=== PATIENT | male | born 1960 | race Caucasian/White ===

== ENCOUNTER 2017-10-23 18:33 | Inpatient (IN) ==
[2017-10-23] MEDS ORDERED: Albuterol 2.5 MG/3 ML NEBULIZER IH PRN (22:09)
[2017-10-23] MEDS ORDERED: Naloxone 0.4 MG/ML INJ IVP PRN (22:09)
[2017-10-23] MEDS: 0.9 % Sodium Chloride 1,000 ML IVC SCH (22:56)
--- NOTE | 2017-10-23 23:11 | Internal Med History&Physical ---
Date of Encounter: 10/23/17 Time of Encounter: 21:45 Internal Medicine - H&P: HPI Chief complaint: cough; SOB; trasnfer from [facility] Admitted From: Hospital to Hospital Transfer Plans for Post Hospital Care: Home History of present illness: Mr. Gaitan is a 57 year old male who presents in transfer from [facility] ER for concerns of pneumonia, acute influenza, and sepsis. He presented there with cough, shortness breath, fevers, malaise, and weakness. Symptoms started roughly 3 days prior and progressively worsened. He therefore came to the ER at [place] where he was noted to be quite ill. He was hypotensive, short of breath, and coughing vigorously. He received IV fluid bolus per sepsis protocol and received antibiotics. Once stabilized hemodynamically, he was transferred here to [facility] for ongoing care. Unfortunately, blood cultures were not obtained even though they were ordered. At the present time, his blood pressure has stabilized to 90s - 100's systolic and his heart rate is the 90s. He still appears quite dehydrated. He states he feels better since he received IV fluid boluses. He complains of left -sided pleuritic chest pain with coughing and splinting. He denies any hemoptysis. He has some wheezing. He has had some nausea but no vomiting or diarrhea. I reviewed his labs at [place] and note that he has some hyponatremia and acute kidney injury. His baseline creatinine is normal around 1, but it is presently 1.67. He also has some mild transaminitis above and beyond his baseline. Past Med Surg Social Fam HX - Past Medical History Attestation: Yes The following information was validated with the patient. Source: patient, old records reviewed, obtained from family Medical history: asthma, COPD, glaucoma, hypertension, other (psoriatic arthritis) Psychiatric history: no psych history - Past Surgical History Surgical History: sinus surgery - Social History Smoking Status: Never smoker Smokeless Tobacco Status: No Alcohol use: none Drug use: none Current living situation: Home, With Family Activity Level: Independent ambulation Recent Out of Country Travel Within the Last 8 Weeks: No - Family History Mother Living Status: Hx Family Respiratory Disorders: No Father Hx Family Respiratory Disorders: No Internal Medicine - H&P: Meds Albuterol Sulfate 2.5 mg IH TID 02/16/15 [History] Albuterol Sulfate [Albuterol Inhaler] 2 puff IH Q4HR PRN 02/16/15 [History] Losartan Potassium [Cozaar] 50 mg PO DAILY 02/16/15 [History] Montelukast [Singulair] 10 mg PO DAILY 02/16/15 [History] Amitriptyline [Elavil] 10 mg PO HS 09/24/16 [History] Cyclobenzaprine [Flexeril] 10 mg PO TID 09/24/16 [History] Divalproex (24 HR) [Depakote ER (24 HR)] 1,000 mg PO HS 09/24/16 [History] Gabapentin [Neurontin] 600 mg PO TID 09/24/16 [History] Gluc/Mauricio-MSM#1/C/Ivan/Valeriy/Bor [Osteo Bi-Flex Caplet] 1 each PO BID 09/24/16 [ History] Meloxicam [Mobic] 15 mg PO DAILY 09/24/16 [History] Omeprazole [PriLOSEC] 40 mg PO BID 09/24/16 [History] Betamethasone Valerate 1 appl TP DAILY 10/23/17 [History] Clobetasol Propionate [Temovate] 1 appl TP BID PRN 10/23/17 [History] Furosemide [Lasix] 40 mg PO DAILY 10/23/17 [History] Loratadine [Claritin] 10 mg PO DAILY 10/23/17 [History] Mometasone/Formoterol [Dulera 100 Mcg/5 Mcg Inhaler] 2 puff IH BID 10/23/17 [ History] Sulfasalazine [Azulfidine] 1,000 mg PO BID 10/23/17 [History] 3 Allergy/AdvReac Type Severity Reaction Status Date / Time No Known Allergies Allergy Verified 09/24/16 13:41 - Constitutional Constitutional: chills, fatigue, fever(s), malaise, weakness, no night sweats - EENT Eyes: no blurry vision, no change in vision Ears: no ear pain, no tinnitus Nose, mouth and throat: nasal congestion, sore throat, no nasal discharge, no sinus pain, no sinus pressure - Cardiovascular Cardiovascular ROS IM: dyspnea, no chest pain, no lightheadedness, no palpitations, no paroxysmal nocturnal dyspnea, no syncope - Respiratory Respiratory: cough, dyspnea, chest congestion, excessive phlegm production, change in phlegm color, pain with cough, no hemoptysis - Gastrointestinal Gastrointestinal: nausea, no abdominal pain, no diarrhea, no hematemesis, no hematochezia, no melena, no vomiting - Genitourinary Genitourinary ROS male: no dysuria, no flank pain, no nocturia - Musculoskeletal Musculoskeletal ROS IM: arthralgias, muscle cramps, myalgias, no back pain, no joint swelling - Integumentary Integumentary IM: no rash, no jaundice - Neurological Neurological ROS: no dizziness, no focal weakness, no frequent falls, no headache(s) - Psychiatric Psychiatric: no anxiety, no depression - Endocrine Endocrine IM: no polydipsia, no polyuria - Hematologic/Lymphatic Hematologic/Lymphatic: no easy bruising, no lymphadenopathy - Allergic/Immunologic Allergic/Immunologic: wheezing, no GI upset with certain foods - Constitutional Vitals: Temp Pulse Resp BP Pulse Ox 98.4 F 96 18 92/58 93 10/23/17 20:40 10/23/17 20:40 10/23/17 20:40 10/23/17 20:40 10/23/17 20:40 General appearance: Present: cooperative, mild distress, A&O X 3, pleasant, answers questions appropriately Exam: looks dehydrated and acutely ill but non-toxic - Head Head exam: Present: atraumatic, normal inspection - Eye Eye exam: Present: EOMI, normal appearance, PERRL. Absent: scleral icterus Pupils: Present: normal accommodation - ENT ENT exam: Present: mucous membranes dry, normal exam, normal oropharynx - Neck Neck exam general surgery: Present: full ROM, supple. Absent: lymphadenopathy, tenderness, nuchal rigidity, thyromegaly - Respiratory Respiratory exam: Present: prolonged expiratory phase, rales (left base), respiratory distress (mild ot moderate), rhonchi, tachypnea. Absent: chest wall tenderness, wheezes Additional comments: + splinting with deep inspiration and coughing - Cardiovascular Cardiovascular exam: Present: RRR, +S1, +S2, tachycardia (borderline -- 90-100's ). Absent: diastolic murmur, systolic murmur - GI/Abdominal GI/Abdominal exam: Present: normal bowel sounds, soft, no peritoneal signs. Absent: guarding, hepatomegaly, mass, rebound, tenderness - Extremities Exam Extremities exam: Present: full ROM, warm, radial pulses palpable and symmetrical. Absent: calf tenderness, joint swelling, normal capillary refill ( slightly delayed at 2-3 seconds), mottling, pedal edema, tenderness - Back Exam Back exam: Present: normal inspection. Absent: CVA tenderness (L), CVA tenderness (R) - Neurological Exam Neurological exam: Present: alert, CN II-XII intact, oriented X3, no focal deficits - Psychiatric Psychiatric exam: Present: normal affect, normal mood - Skin Skin exam: Present: dry, warm. Absent: rash Internal Med - H&P Results - Labs Labs: I reviewed labs from [place] and include the following: WBC 3.0 Hemoglobin 13.9 Hematocrit 40.6 Platelet count 134 Sodium 129 Potassium 4.6 Chloride 93 Carbon dioxide 28 BUN 34 Creatinine 1.67 Initial lactate 1.4 - Diagnostic Studies Chest x-ray Status: image reviewed by me (suspect RML and LLL infiltrates) - Assessment and plan (1) Sepsis Current Visit: Yes Status: Acute Assessment and plan: 1. Likely due to pneumonia and influenza. 2. Patient received IVF boluses at [place]. 3. Will continue MIV and trend Lactate levels. 4. I will order STAT blood cultures as they were not yet done. 5. Will place on IV antiboitics, aerosols, and IV steroids. 6. Monitor hemodynamics closely and follow labs. Qualifiers: Sepsis type: sepsis due to unspecified organism Qualified Code(s): A41.9 - Sepsis, unspecified organism (2) Bilateral pneumonia Current Visit: No Status: Acute Assessment and plan: 1. Antibiotics and sepsis treatment as above. 2. Oxygen and aerosols as needed for support. 3. Likely etiology for sepsis. Qualifiers: Pneumonia type: due to unspecified organism Lung location: lower lobe of lung Qualified Code(s): J18.1 - Lobar pneumonia, unspecified organism (3) Influenza Current Visit: No Status: Acute Assessment and plan: 1. Patient tested positive for Influenza at [place]. 2. Will place on Tamiflu and place in droplet precautions. (4) Acute kidney injury Current Visit: Yes Status: Acute Assessment and plan: 1. Will monitor renal function closely as well as I/O and daily weight. 2. Likely due to sepsis. 3. If renal function does not improve, will consult nephrology. (5) DVT prophylaxis Current Visit: Yes Status: Acute Assessment and plan: 1. Heparin SQ.
[2017-10-23] MEDS: Ipratropium/Albuterol Neb 3 ML IH SCH (23:18)
[2017-10-24] MEDS ORDERED: CLOBETASOL PROPIONATE 15 GM TUBE TP PRN (01:54)
[2017-10-24 03:05] LABS: Basophils % 1.1 %; Hematocrit 32.5 % (37.5-50.1); Hemoglobin 11.3 g/dL (12.9-16.9); Immature Granulocytes % 1.6 % (0-4); Lymphocytes # 0.3 K/mcL (0.6-4.6); Lymphocytes % 17.6 %; Mean Corpuscular HGB Conc 34.8 g/dL (31.6-35.5); Mean Corpuscular Hemoglobin 29.9 pg (28.0-33.3); Mean Platelet Volume 9.9 fL (9.4-12.4); Monocytes # 0.3 K/mcL (0.0-1.3); Monocytes % 17.1 %; Neutrophils # 1.2 K/mcL (1.6-8.9); Platelet Count 102 K/mcL (140-400); Red Blood Count 3.78 M/mcL (4.19-5.50); Red Cell Distribution Width 13.5 % (11.5-14.5); Segmented Neutrophils % 62.6 %
[2017-10-24 03:12] LABS: INR 1.2; Prothrombin Time 12.7 Seconds (9.4-12.1)
[2017-10-24 03:14] LABS: Activated Partial Thrombo Time 27.4 Seconds (26.0-36.0)
[2017-10-24 03:22] LABS: Platelet Estimate Decreased (Normal)
[2017-10-24 03:27] LABS: Alanine Aminotransferase 67 Units/L (7-52); Albumin 3.1 g/dL (3.5-5.7); Albumin/Globulin Ratio 1.4 (1.1-2.2); Alkaline Phosphatase 58 Units/L (34-104); Aspartate Amino Transferase 83 Units/L (13-39); BUN/Creatinine Ratio 25 (6-26); Bilirubin,Total 0.6 mg/dL (0.3-1.0); Blood Urea Nitrogen 31 mg/dL (6-20); Calcium 7.9 mg/dL (8.6-10.3); Carbon Dioxide 24 mEq/L (23-29); Chloride 102 mEq/L (98-107); Globulin 2.2 g/dL (2.4-3.5); Glucose 106 mg/dL (70-105); Magnesium 2.1 mg/dL (1.6-2.6); Osmolality,Calculated 277 (280-300); Potassium 4.3 mEq/L (3.5-5.1); Sodium 130 mEq/L (136-145); Total Protein 5.3 g/dL (6.4-8.9); eGFR For African Americans > 60 (> 60); eGFR For Non-African Americans 60 (> 60)
[2017-10-24] MEDS: Acetaminophen 325 MG TABLET PO PRN ×2 (04:04→20:56)
[2017-10-24] MEDS: Ipratropium/Albuterol Neb 3 ML IH SCH ×4 (04:41→22:22)
[2017-10-24] MEDS: *HR* Heparin 5,000 UNIT/ML VIAL SQ SCH ×2 (05:48→17:32)
[2017-10-24] MEDS: methylPREDNISolone 125 MG/2 ML VIAL IVP SCH ×2 (05:48→17:32)
[2017-10-24] MEDS: 0.9 % Sodium Chloride 1,000 ML IVC SCH (08:23)
[2017-10-24] MEDS: Levofloxacin 750 MG/150 ML 750 MG/150 ML BAG IVPB SCH (08:24)
[2017-10-24] MEDS: sulfaSALAzine 500 MG TABLET PO SCH ×2 (08:25→20:47)
[2017-10-24] MEDS: Gabapentin 300 MG CAPSULE PO SCH ×3 (08:25→20:48)
[2017-10-24] MEDS: Loratadine 10 MG TABLET PO SCH (08:25)
[2017-10-24] MEDS: Triamcinolone Acet 0.1% CRM 15 GM TUBE TP SCH (08:27)
[2017-10-24] MEDS ORDERED: (Osteo Bi-Flex Caplet) PO SCH (09:00)
[2017-10-24] MEDS: Budesonide/Formoterol 80/4.5 MDI IH SCH ×2 (09:31→22:22)
--- NOTE | 2017-10-24 19:09 | Internal Med Progress Note ---
Date of Encounter: 10/24/17 Time of Encounter: 11:00 - Assessment and plan (1) Sepsis Current Visit: Yes Status: Acute Assessment and plan: Secondary to influenza and pneumonia Will continue IV antibiotics as below Qualifiers: Sepsis type: sepsis due to unspecified organism Qualified Code(s): A41.9 - Sepsis, unspecified organism (2) Influenza Current Visit: No Status: Acute Assessment and plan: Patient tested positive for Influenza at [place]. Will continue Tamiflu (3) Bilateral pneumonia Current Visit: No Status: Acute Assessment and plan: Continue IV Levaquin Qualifiers: Pneumonia type: due to unspecified organism Lung location: lower lobe of lung Qualified Code(s): J18.1 - Lobar pneumonia, unspecified organism (4) Acute kidney injury Current Visit: Yes Status: Acute Assessment and plan: Resolved; suspect secondary to sepsis Continue to monitor (5) DVT prophylaxis Current Visit: Yes Status: Acute Assessment and plan: Subcutaneous heparin - Time Spent With Patient Total time spent is greater than 50% in coordination of care (as documented) at patient's floor/unit and/or counseling patient: - Subjective Interval history: Patient with continued shortness of breath and cough this morning - Constitutional Vitals: Temp Pulse Resp BP Pulse Ox 98.1 F 95 18 119/83 94 10/24/17 16:15 10/24/17 17:37 10/24/17 17:37 10/24/17 16:15 10/24/17 17:37 General appearance: Present: cooperative, mild distress, A&O X 3, pleasant, no acute distress, answers questions appropriately - Respiratory Respiratory exam: Present: CTAB. Absent: accessory muscle use, rales, rhonchi, wheezes - Cardiovascular Cardiovascular exam: Present: RRR, +S1, +S2. Absent: diastolic murmur, gallop, rubs, systolic murmur Internal Medicine: Result - Labs CBC & Chem 7: 10/24/17 02:57 10/24/17 02:57 Labs: Short CBC 10/24/17 Range/Units 02:57 WBC 1.9 L (4.3-11.1) K/mcL Hgb 11.3 L D (12.9-16.9) g/dL Hct 32.5 L (37.5-50.1) % Plt Count 102 L (140-400) K/mcL Neutrophils # 1.2 L (1.6-8.9) K/mcL BMP 10/24/17 02:57 Sodium 130 L Potassium 4.3 Chloride 102 Carbon Dioxide 24 BUN 31 H Creatinine 1.25 Glucose 106 H Calcium 7.9 L Liver Function 10/24/17 Range/Units 02:57 Total Bilirubin 0.6 (0.3-1.0) mg/dL AST 83 H (13-39) Units/L ALT 67 H (7-52) Units/L Alkaline Phosphatase 58 (34-104) Units/L Albumin 3.1 L (3.5-5.7) g/dL - ABG Interpretation ABG results: PT/INR, D-dimer PT 12.7 Seconds (9.4-12.1) H 10/24/17 02:57 Consult Discharge Plan - Plan Referrals: SHERRILL FULLER [Other] - 10/31/17 10:00 am
[2017-10-24] MEDS: Divalproex (24 HR) 500 MG TABLET PO SCH (20:48)
[2017-10-25] MEDS: Ipratropium/Albuterol Neb 3 ML IH SCH ×4 (04:05→21:05)
[2017-10-25] MEDS: methylPREDNISolone 125 MG/2 ML VIAL IVP SCH (05:10)
[2017-10-25] MEDS: *HR* Heparin 5,000 UNIT/ML VIAL SQ SCH ×2 (05:10→17:09)
[2017-10-25] MEDS: sulfaSALAzine 500 MG TABLET PO SCH ×2 (08:23→21:59)
[2017-10-25] MEDS: Gabapentin 300 MG CAPSULE PO SCH ×3 (08:23→21:59)
[2017-10-25] MEDS: Loratadine 10 MG TABLET PO SCH (08:23)
[2017-10-25] MEDS: Triamcinolone Acet 0.1% CRM 15 GM TUBE TP SCH (08:24)
[2017-10-25] MEDS: Levofloxacin 750 MG/150 ML 750 MG/150 ML BAG IVPB SCH (08:24)
[2017-10-25 09:34] LABS: Basophils % 0.4 %; Hematocrit 34.3 % (37.5-50.1); Immature Granulocytes % 0.4 % (0-4); Lymphocytes # 0.4 K/mcL (0.6-4.6); Mean Corpuscular Hemoglobin 29.6 pg (28.0-33.3); Mean Corpuscular Volume 84.7 fL (83.0-100.0); Mean Platelet Volume 10.1 fL (9.4-12.4); Monocytes # 0.1 K/mcL (0.0-1.3); Monocytes % 4.1 %; Platelet Count 123 K/mcL (140-400); Red Blood Count 4.05 M/mcL (4.19-5.50); Red Cell Distribution Width 13.2 % (11.5-14.5); Segmented Neutrophils % 80.1 %
[2017-10-25 09:56] LABS: BUN/Creatinine Ratio 24 (6-26); Blood Urea Nitrogen 20 mg/dL (6-20); Calcium 8.5 mg/dL (8.6-10.3); Carbon Dioxide 19 mEq/L (23-29); Chloride 103 mEq/L (98-107); Glucose 189 mg/dL (70-105); Osmolality,Calculated 280 (280-300); Potassium 4.3 mEq/L (3.5-5.1); Sodium 131 mEq/L (136-145); eGFR For African Americans > 60 (> 60); eGFR For Non-African Americans > 60 (> 60)
[2017-10-25] MEDS: Budesonide/Formoterol 80/4.5 MDI IH SCH ×2 (10:11→21:05)
[2017-10-25] MEDS ORDERED: 0.9 % Sodium Chloride 1,000 ML IVC SCH (13:00)
[2017-10-25] MEDS: 0.9 % Sodium Chloride 1,000 ML IVC SCH (13:19)
--- NOTE | 2017-10-25 19:29 | Internal Med Progress Note ---
Date of Encounter: 10/25/17 Time of Encounter: 11:00 - Assessment and plan (1) Sepsis Current Visit: Yes Status: Acute Assessment and plan: Secondary to influenza and pneumonia Will continue IV antibiotics as below Qualifiers: Sepsis type: sepsis due to unspecified organism Qualified Code(s): A41.9 - Sepsis, unspecified organism (2) Influenza Current Visit: No Status: Acute Assessment and plan: Patient tested positive for Influenza at [place]. Will continue Tamiflu (3) Bilateral pneumonia Current Visit: No Status: Acute Assessment and plan: Patient with improvement in shortness of breath but continued cough Continue IV Levaquin and Mucinex was added Qualifiers: Pneumonia type: due to unspecified organism Lung location: lower lobe of lung Qualified Code(s): J18.1 - Lobar pneumonia, unspecified organism (4) Acute kidney injury Current Visit: Yes Status: Acute Assessment and plan: Resolved; suspect secondary to sepsis Continue to monitor (5) DVT prophylaxis Current Visit: Yes Status: Acute Assessment and plan: Subcutaneous heparin - Time Spent With Patient Total time spent is greater than 50% in coordination of care (as documented) at patient's floor/unit and/or counseling patient: - Subjective Interval history: Patient with improvement in shortness of breath but no improvement in cough - Constitutional Vitals: Temp Pulse Resp BP Pulse Ox 98.2 F 102 18 124/82 98 10/25/17 19:03 10/25/17 19:03 10/25/17 19:03 10/25/17 19:03 10/25/17 19:03 General appearance: Present: cooperative, mild distress, A&O X 3, pleasant, no acute distress, answers questions appropriately - Respiratory Respiratory exam: Present: CTAB. Absent: accessory muscle use, rales, rhonchi, wheezes - Cardiovascular Cardiovascular exam: Present: RRR, +S1, +S2. Absent: diastolic murmur, gallop, rubs, systolic murmur Internal Medicine: Result - Labs CBC & Chem 7: 10/25/17 09:22 10/25/17 09:22 Labs: Short CBC 10/25/17 Range/Units 09:22 WBC 2.5 L (4.3-11.1) K/mcL Hgb 12.0 L (12.9-16.9) g/dL Hct 34.3 L (37.5-50.1) % Plt Count 123 L (140-400) K/mcL Neutrophils # 2.0 (1.6-8.9) K/mcL BMP 10/25/17 09:22 Sodium 131 L Potassium 4.3 Chloride 103 Carbon Dioxide 19 L BUN 20 Creatinine 0.82 Glucose 189 H Calcium 8.5 L - ABG Interpretation ABG results: PT/INR, D-dimer PT 12.7 Seconds (9.4-12.1) H 10/24/17 02:57 Consult Discharge Plan - Plan Referrals: SHERRILL FULLER [Other] - 10/31/17 10:00 am
[2017-10-25] MEDS: Divalproex (24 HR) 500 MG TABLET PO SCH (21:58)
[2017-10-25] MEDS: Acetaminophen 325 MG TABLET PO PRN (21:59)
[2017-10-25] MEDS: GuaiFENesin/Dextromethorphan TABLET PO SCH (22:00)
[2017-10-26] MEDS: Ipratropium/Albuterol Neb 3 ML IH SCH ×4 (03:57→21:58)
[2017-10-26] MEDS: *HR* Heparin 5,000 UNIT/ML VIAL SQ SCH ×2 (06:23→17:24)
[2017-10-26] MEDS: 0.9 % Sodium Chloride 1,000 ML IVC SCH ×2 (06:23→15:53)
[2017-10-26] MEDS: sulfaSALAzine 500 MG TABLET PO SCH ×2 (09:20→22:48)
[2017-10-26] MEDS: Loratadine 10 MG TABLET PO SCH (09:20)
[2017-10-26] MEDS: Gabapentin 300 MG CAPSULE PO SCH ×3 (09:20→22:48)
[2017-10-26] MEDS: predniSONE 20 MG TABLET PO SCH (09:20)
[2017-10-26] MEDS: GuaiFENesin/Dextromethorphan TABLET PO SCH ×2 (09:20→22:49)
[2017-10-26] MEDS: Levofloxacin 750 MG/150 ML 750 MG/150 ML BAG IVPB SCH (09:21)
[2017-10-26] MEDS: Triamcinolone Acet 0.1% CRM 15 GM TUBE TP SCH (09:23)
[2017-10-26] MEDS: Acetaminophen 325 MG TABLET PO PRN ×3 (09:28→23:19)
[2017-10-26 10:22] LABS: Basophils % 0.9 %; Hematocrit 35.3 % (37.5-50.1); Hemoglobin 12.1 g/dL (12.9-16.9); Immature Granulocytes % 0.9 % (0-4); Lymphocytes # 0.9 K/mcL (0.6-4.6); Lymphocytes % 26.9 %; Mean Corpuscular HGB Conc 34.3 g/dL (31.6-35.5); Mean Corpuscular Hemoglobin 29.4 pg (28.0-33.3); Mean Corpuscular Volume 85.9 fL (83.0-100.0); Mean Platelet Volume 9.6 fL (9.4-12.4); Monocytes # 0.6 K/mcL (0.0-1.3); Monocytes % 16.6 %; Neutrophils # 1.8 K/mcL (1.6-8.9); Platelet Count 157 K/mcL (140-400); Red Blood Count 4.11 M/mcL (4.19-5.50); Red Cell Distribution Width 13.4 % (11.5-14.5); Segmented Neutrophils % 54.7 %
[2017-10-26 10:39] LABS: BUN/Creatinine Ratio 23 (6-26); Blood Urea Nitrogen 22 mg/dL (6-20); Calcium 8.5 mg/dL (8.6-10.3); Carbon Dioxide 25 mEq/L (23-29); Chloride 103 mEq/L (98-107); Glucose 101 mg/dL (70-105); Osmolality,Calculated 283 (280-300); Potassium 3.8 mEq/L (3.5-5.1); Sodium 135 mEq/L (136-145); eGFR For African Americans > 60 (> 60); eGFR For Non-African Americans > 60 (> 60)
[2017-10-26] MEDS: Budesonide/Formoterol 80/4.5 MDI IH SCH ×2 (11:00→21:59)
--- NOTE | 2017-10-26 18:59 | Internal Med Progress Note ---
Date of Encounter: 10/26/17 Time of Encounter: 11:00 - Assessment and plan (1) Bilateral pneumonia Current Visit: No Status: Acute Assessment and plan: Patient with improvement in shortness and cough but still with generalized weakness Neutropenia improving; suspect secondary to sepsis due to pneumonia Continue IV Levaquin and Mucinex Qualifiers: Pneumonia type: due to unspecified organism Lung location: lower lobe of lung Qualified Code(s): J18.1 - Lobar pneumonia, unspecified organism (2) Influenza Current Visit: No Status: Acute Assessment and plan: Patient tested positive for Influenza at [place]. Will continue Tamiflu (3) Sepsis Current Visit: Yes Status: Acute Assessment and plan: Secondary to influenza and pneumonia Neutropenia improving Will continue IV antibiotics as below Qualifiers: Sepsis type: sepsis due to unspecified organism Qualified Code(s): A41.9 - Sepsis, unspecified organism (4) Acute kidney injury Current Visit: Yes Status: Acute Assessment and plan: Resolved; suspect secondary to sepsis Continue to monitor (5) DVT prophylaxis Current Visit: Yes Status: Acute Assessment and plan: Subcutaneous heparin - Time Spent With Patient Total time spent is greater than 50% in coordination of care (as documented) at patient's floor/unit and/or counseling patient: - Subjective Interval history: Patient with improvement in shortness of breath and cough Patient still complains however of generalized weakness - Constitutional Vitals: Temp Pulse Resp BP Pulse Ox 97.9 F 106 18 120/84 94 10/26/17 16:24 10/26/17 16:24 10/26/17 16:24 10/26/17 16:24 10/26/17 16:24 General appearance: Present: cooperative, mild distress, A&O X 3, pleasant, no acute distress, answers questions appropriately - Respiratory Respiratory exam: Present: CTAB. Absent: accessory muscle use, rales, rhonchi, wheezes - Cardiovascular Cardiovascular exam: Present: RRR, +S1, +S2. Absent: diastolic murmur, gallop, rubs, systolic murmur Internal Medicine: Result - Labs CBC & Chem 7: 10/26/17 09:34 10/26/17 09:34 Labs: Short CBC 10/26/17 Range/Units 09:34 WBC 3.3 L (4.3-11.1) K/mcL Hgb 12.1 L (12.9-16.9) g/dL Hct 35.3 L (37.5-50.1) % Plt Count 157 (140-400) K/mcL Neutrophils # 1.8 (1.6-8.9) K/mcL BMP 10/26/17 09:34 Sodium 135 L Potassium 3.8 Chloride 103 Carbon Dioxide 25 BUN 22 H Creatinine 0.97 Glucose 101 Calcium 8.5 L - ABG Interpretation ABG results: PT/INR, D-dimer PT 12.7 Seconds (9.4-12.1) H 10/24/17 02:57 Consult Discharge Plan - Plan Referrals: SHERRILL FULLER [Other] - 10/31/17 10:00 am
[2017-10-26] MEDS: Divalproex (24 HR) 500 MG TABLET PO SCH (22:49)
[2017-10-27 03:57] LABS: Basophils % 0.6 %; Hematocrit 29.9 % (37.5-50.1); Immature Granulocytes % 1.3 % (0-4); Lymphocytes # 1.1 K/mcL (0.6-4.6); Lymphocytes % 36.3 %; Mean Corpuscular HGB Conc 35.1 g/dL (31.6-35.5); Mean Corpuscular Hemoglobin 29.5 pg (28.0-33.3); Mean Platelet Volume 9.6 fL (9.4-12.4); Monocytes % 14.3 %; Neutrophils # 1.5 K/mcL (1.6-8.9); Platelet Count 149 K/mcL (140-400); Red Blood Count 3.56 M/mcL (4.19-5.50); Red Cell Distribution Width 13.2 % (11.5-14.5); Segmented Neutrophils % 47.5 %
[2017-10-27 04:00] LABS: Hemoglobin 10.5 g/dL (12.9-16.9); Monocytes # 0.4 K/mcL (0.0-1.3)
[2017-10-27] MEDS: Ipratropium/Albuterol Neb 3 ML IH SCH ×2 (04:06→09:49)
[2017-10-27 04:20] LABS: BUN/Creatinine Ratio 24 (6-26); Blood Urea Nitrogen 18 mg/dL (6-20); Calcium 8.3 mg/dL (8.6-10.3); Carbon Dioxide 26 mEq/L (23-29); Chloride 103 mEq/L (98-107); Glucose 102 mg/dL (70-105); Osmolality,Calculated 280 (280-300); Potassium 3.8 mEq/L (3.5-5.1); Sodium 134 mEq/L (136-145); eGFR For African Americans > 60 (> 60); eGFR For Non-African Americans > 60 (> 60)
[2017-10-27 04:24] LABS: Platelet Estimate Normal (Normal)
[2017-10-27] MEDS: *HR* Heparin 5,000 UNIT/ML VIAL SQ SCH (06:56)
[2017-10-27] MEDS: Gabapentin 300 MG CAPSULE PO SCH (07:34)
[2017-10-27] MEDS: sulfaSALAzine 500 MG TABLET PO SCH (07:35)
[2017-10-27] MEDS: Acetaminophen 325 MG TABLET PO PRN (07:35)
[2017-10-27] MEDS: predniSONE 20 MG TABLET PO SCH (07:35)
[2017-10-27] MEDS: Loratadine 10 MG TABLET PO SCH (07:35)
[2017-10-27] MEDS: GuaiFENesin/Dextromethorphan TABLET PO SCH (07:35)
[2017-10-27] MEDS: Triamcinolone Acet 0.1% CRM 15 GM TUBE TP SCH (07:36)
[2017-10-27] MEDS ORDERED: levoFLOXacin 750 MG TABLET PO SCH (09:00)
[2017-10-27] MEDS: Budesonide/Formoterol 80/4.5 MDI IH SCH (09:51)
[2017-10-27 11:24] VITALS: BP 133/75
--- NOTE | 2017-10-27 14:13 | Discharge Summary ---
- NOTES TO OUTPATIENT PROVIDER Notes to Outpatient Provider: None Orders not resulted at time of discharge: Pending orders 10/23/17 22:30 Culture,Blood [BC] Stat 10/24/17 06:00 ECG 12 lead ECG [ECG] AM 0600 10/28/17 04:00 Basic Metabolic Panel AM 0400 Complete Blood Count [HEME] AM 0400 Date of Encounter: 10/27/17 Time of Encounter: 11:00 - Discharge Diagnosis (1) Bilateral pneumonia Priority: Primary Status: Acute Qualifiers: Pneumonia type: due to unspecified organism Lung location: lower lobe of lung Qualified Code(s): J18.1 - Lobar pneumonia, unspecified organism (2) Influenza Priority: Primary Status: Acute (3) Sepsis Priority: Primary Status: Acute Qualifiers: Sepsis type: sepsis due to unspecified organism Qualified Code(s): A41.9 - Sepsis, unspecified organism (4) Acute kidney injury Priority: Secondary Status: Acute Hospital course: Patient is a 57-year-old male with past medical history significant for COPD and hypertension who presented to [place] [facility] on 10/24/17 due to shortness of breath and cough. Patient reported that symptoms started approximately 3 days prior to presentation and actually worsened therefore he decided to go to the ER for evaluation. At the ER, patient was noted to be septic and was fluid resuscitated and antibiotics started. Patient was transferred to [facility] [place] for concerns of sepsis secondary to influenza and pneumonia. During patients hospital stay, his symptoms improved with treatment of Tamiflu and IV Levaquin in addition to dual nebs and prednisone. Patient remained on room air and was afebrile without leukocytosis. Patient will be discharged to complete a 2 day course of Tamiflu and a 4 day course of Levaquin. - Time Spent with Patient Total time spent providing and/or coordinating discharge services: Less than 30 minutes - Discharge Medications Prescriptions: levoFLOXacin [Levaquin] 750 mg PO DAILY #4 tablet Oseltamivir [Tamiflu] 75 mg PO BID #4 capsule predniSONE [PredniSONE] 40 mg PO DAILY #8 tablet Home Medications: Albuterol Sulfate 2.5 mg IH TID 02/16/15 [History] Albuterol Sulfate [Albuterol Inhaler] 2 puff IH Q4HR PRN 02/16/15 [History] Losartan Potassium [Cozaar] 50 mg PO DAILY 02/16/15 [History] Montelukast [Singulair] 10 mg PO DAILY 02/16/15 [History] Amitriptyline [Elavil] 10 mg PO HS 09/24/16 [History] Cyclobenzaprine [Flexeril] 10 mg PO TID 09/24/16 [History] Divalproex (24 HR) [Depakote ER (24 HR)] 1,000 mg PO HS 09/24/16 [History] Gabapentin [Neurontin] 600 mg PO TID 09/24/16 [History] Gluc/Mauricio-MSM#1/C/Ivan/Valeriy/Bor [Osteo Bi-Flex Caplet] 1 each PO BID 09/24/16 [ History] Meloxicam [Mobic] 15 mg PO DAILY 09/24/16 [History] Omeprazole [PriLOSEC] 40 mg PO BID 09/24/16 [History] Betamethasone Valerate 1 appl TP DAILY 10/23/17 [History] Clobetasol Propionate [Temovate] 1 appl TP BID PRN 10/23/17 [History] Furosemide [Lasix] 40 mg PO DAILY 10/23/17 [History] Loratadine [Claritin] 10 mg PO DAILY 10/23/17 [History] Mometasone/Formoterol [Dulera 100 Mcg/5 Mcg Inhaler] 2 puff IH BID 10/23/17 [ History] Sulfasalazine [Azulfidine] 1,000 mg PO BID 10/23/17 [History] Oseltamivir [Tamiflu] 75 mg PO BID #4 capsule 10/27/17 [Rx] levoFLOXacin [Levaquin] 750 mg PO DAILY #4 tablet 10/27/17 [Rx] predniSONE [PredniSONE] 40 mg PO DAILY #8 tablet 10/27/17 [Rx] Allergies/Adverse Reactions: 3 Allergy/AdvReac Type Severity Reaction Status Date / Time No Known Allergies Allergy Verified 09/24/16 13:41 Date of admission: 10/24/17 07:46 Primary care physician: Boyd Morrison, - Constitutional Vitals: Temp Pulse Resp BP Pulse Ox 97.7 F 103 18 133/75 93 10/27/17 11:22 10/27/17 12:12 10/27/17 11:22 10/27/17 11:22 10/27/17 11:22 General appearance: Present: cooperative, mild distress, A&O X 3, pleasant, no acute distress, answers questions appropriately - Respiratory Respiratory exam: Present: CTAB. Absent: accessory muscle use, rales, rhonchi, wheezes - Cardiovascular Cardiovascular exam: Present: RRR, +S1, +S2. Absent: diastolic murmur, gallop, rubs, systolic murmur - Patient Status Disposition: Home, Self-Care - Discharge Instructions Instructions: Prednisone (By mouth), Levofloxacin (By mouth), Oseltamivir (By mouth), Influenza (DC), Pneumonia (DC) Follow Up With: BOYD MORRISON [Other] - 10/31/17 10:00 am (PLEASE FOLLOW UP WITH PCP IN 1-2 WEEKS: BETHANIE MCCORMACK FOLLOW UP 10-31-17 AT 10AM BOYD MORRISON FOLLOW UP 11-06-17 AT 8AM) Additional Instructions: PLEASE TAKE AND COMPLETE THE LEVAQUIN, TAMIFLU, AND PREDNISONE PRESCRIPTIONS. ACTIVITY AND DIET TOLERATED. FOLLOW UP WITH PCP SCHEDULED.
== END 2017-10-27 15:05 | disposition home or self-care (01) | DRG 720 ==
LOC: 2SOUTHHOLD → SUATTDRO 20:15 → 2NNU 23:11
PROVIDERS: ADMIT Internal Medicine; ATTEND Hospitalist

== ENCOUNTER 2020-05-13 13:57 | Observation (INO) ==
[2020-05-13] MEDS ORDERED: Naloxone 0.4 MG/ML INJ IVP PRN (16:42)
[2020-05-13] MEDS ORDERED: *HR* HYDROcodone/Acet 5/325 mg TABLET PO PRN (16:42)
[2020-05-13] MEDS ORDERED: Ipratropium/Albuterol Neb 3 ML IH PRN (16:47)
[2020-05-13] MEDS ORDERED: *HR* Heparin 5,000 UNIT/ML VIAL IVP PRN ×2 (17:17)
[2020-05-13] MEDS ORDERED: Heparin 25,000UNIT/250ML 1/2NS 25,000 UNIT/250 ML IV.SOLN IVC SCH (17:30)
[2020-05-13 18:27] LABS: Hematocrit 48.5 % (37.5-50.1); Hemoglobin 16.1 g/dL (12.9-16.9); Mean Corpuscular HGB Conc 33.2 g/dL (31.6-35.5); Mean Corpuscular Hemoglobin 28.8 pg (28.0-33.3); Mean Corpuscular Volume 86.6 fL (83.0-100.0); Mean Platelet Volume 9.8 fL (9.4-12.4); Platelet Count 175 K/mcL (140-400); Red Cell Distribution Width 14.4 % (11.5-14.5); White Blood Count 9.4 K/mcL (4.3-11.1)
[2020-05-13 18:34] LABS: Prothrombin Time 11.9 Seconds (9.4-12.1)
[2020-05-13 18:37] LABS: Heparin anti-factor XA UFH 1.3 IU/mL (0.30-0.70)
[2020-05-13] MEDS: Gabapentin 300 MG CAPSULE PO SCH (21:14)
[2020-05-14 01:35] LABS: Basophils % 0.6 %; Eosinophils # 0.1 K/mcL (0.0-0.6); Hematocrit 44.4 % (37.5-50.1); Hemoglobin 14.5 g/dL (12.9-16.9); Immature Granulocytes % 1.8 % (0-4); Lymphocytes # 1.7 K/mcL (0.6-4.6); Lymphocytes % 23.9 %; Mean Corpuscular HGB Conc 32.7 g/dL (31.6-35.5); Mean Corpuscular Hemoglobin 28.4 pg (28.0-33.3); Mean Corpuscular Volume 87.1 fL (83.0-100.0); Mean Platelet Volume 9.6 fL (9.4-12.4); Monocytes # 0.8 K/mcL (0.0-1.3); Monocytes % 11.1 %; Neutrophils # 4.4 K/mcL (1.6-8.9); Platelet Count 156 K/mcL (140-400); Red Cell Distribution Width 14.5 % (11.5-14.5); Segmented Neutrophils % 61.6 %; White Blood Count 7.1 K/mcL (4.3-11.1)
[2020-05-14 01:46] LABS: BUN/Creatinine Ratio 15 (6-26); Blood Urea Nitrogen 18 mg/dL (6-20); Calcium 8.5 mg/dL (8.6-10.3); Carbon Dioxide 23 mEq/L (23-29); Chloride 108 mEq/L (98-107); Glucose 152 mg/dL (70-105); Osmolality,Calculated 291 (280-300); Phosphorous 3.2 mg/dL (2.7-4.5); Potassium 3.5 mEq/L (3.5-5.1); Sodium 138 mEq/L (136-145); eGFR For African Americans > 60 (> 60); eGFR For Non-African Americans > 60 (> 60)
[2020-05-14] MEDS ORDERED: Perflutren Lipid Microsphere 1.3 ML in 0.9 % Sodium Chloride 8.7 ML IVP PRN (07:25)
[2020-05-14] MEDS: Gabapentin 300 MG CAPSULE PO SCH ×2 (07:29→15:11)
[2020-05-14] MEDS ORDERED: predniSONE 10 MG TABLET PO SCH (09:00)
[2020-05-14] MEDS ORDERED: Furosemide 40 MG TABLET PO SCH (09:00)
[2020-05-14 10:49] VITALS: BP 115/82
[2020-05-14] MEDS ORDERED: FluocinoNIDE 0.05% CRM 15 GM TUBE TP PRN (12:10)
[2020-05-14] MEDS ORDERED: Albuterol 2.5 MG/3 ML NEBULIZER IH SCH (12:12)
[2020-05-14] MEDS ORDERED: Tiotropium 18 MCG inhalation IH SCH (12:15)
[2020-05-14] MEDS ORDERED: *HR* Rivaroxaban 15 MG TABLET PO SCH (14:30)
[2020-05-14] MEDS ORDERED: Topiramate 25 MG TABLET PO SCH (21:00)
[2020-05-14] MEDS ORDERED: Budesonide/Formoterol 80/4.5 1 PUFF INH IH SCH (22:00)
[2020-05-15] MEDS ORDERED: Loratadine 10 MG TABLET PO SCH (09:00)
[2020-05-15] MEDS ORDERED: Famotidine 20 MG TABLET PO SCH (09:00)
[2020-05-15] MEDS ORDERED: Cholecalciferol (D-3) 1,000 UNIT (25MCG) TABLET PO SCH (09:00)
== END 2020-05-14 16:22 | disposition home or self-care (01) ==
LOC: 2ANU → SUATTDRO 16:21
PROVIDERS: ADMIT Internal Medicine; ATTEND Internal Medicine

== ENCOUNTER 2021-03-31 02:54 | Inpatient (IN) ==
[2021-03-31] MEDS ORDERED: Saline Nasal Spray 44 ML BOTTLE NS PRN (08:05)
[2021-03-31] MEDS ORDERED: Saliva Stimulant 44.3ml BOTTLE PO PRN (08:05)
[2021-03-31] MEDS ORDERED: Chloraseptic Spray 177 ML BOTTLE MM PRN (08:05)
[2021-03-31] MEDS ORDERED: Melatonin 3 MG TABLET PO PRN (08:05)
[2021-03-31] MEDS ORDERED: Ondansetron 4 MG/2 ML VIAL IVP PRN (08:07)
[2021-03-31] MEDS ORDERED: Acetaminophen 325 MG TABLET PO PRN (08:07)
[2021-03-31] MEDS ORDERED: *HR* HYDROcodone/Acet 5/325 mg TABLET PO PRN (08:07)
[2021-03-31] MEDS ORDERED: Naloxone 0.4 MG/ML INJ IVP PRN (08:07)
[2021-03-31] MEDS ORDERED: Dextrose Gel 15 GM/37.5 ML TUBE PO PRN ×2 (08:10)
[2021-03-31] MEDS ORDERED: D5% in Water 1,000 ML IVC PRN (08:10)
[2021-03-31] MEDS ORDERED: *HR* Dextrose 50 % in Water (Vial) 50 ML VIAL IVP PRN (08:10)
[2021-03-31] MEDS ORDERED: Remdesivir 200 MG in 0.9 % Sodium Chloride 100 ML IVPB ONE ×2 (08:53→08:56)
[2021-03-31] MEDS: Insulin LISPRO 300 UNITS/3 ML VIAL SUBQ SCH ×3 (08:59→17:34)
[2021-03-31] MEDS: Multivit/Ca/Min/Fe/FA 1 TAB TABLET PO SCH (09:14)
[2021-03-31] MEDS: Cholecalciferol (D-3) 1,000 UNIT (25MCG) TABLET PO SCH (09:14)
[2021-03-31] MEDS: Chlorhexidine Rinse 15 ML MOUTHWASH MM SCH ×2 (09:14→20:20)
[2021-03-31] MEDS: Dexamethasone Sodium Phos/PF 10 MG/ML VIAL IVP SCH (09:14)
[2021-03-31 09:43] LABS: ABG Base Excess -3 mEq/L (-2 to 3); ABG HCO3 21 mEq/L (21-27); ABG Oxygen Saturation 88 % (95-98); ABG PCO2 35 mmHg (35-45); ABG PO2 54 mmHg (85-104); ABG TCO2 23 mEq/L (20-26)
[2021-03-31 09:46] LABS: Basophils % 0.3 %; Hematocrit 40.1 % (37.5-50.1); Hemoglobin 13.3 g/dL (12.9-16.9); Immature Granulocytes % 1.3 % (0-4); Lymphocytes # 0.7 K/mcL (0.6-4.6); Lymphocytes % 17.4 %; Mean Corpuscular HGB Conc 33.2 g/dL (31.6-35.5); Mean Corpuscular Hemoglobin 28.5 pg (28.0-33.3); Mean Corpuscular Volume 85.9 fL (83.0-100.0); Mean Platelet Volume 9.9 fL (9.4-12.4); Monocytes # 0.3 K/mcL (0.0-1.3); Monocytes % 7.9 %; Neutrophils # 2.8 K/mcL (1.6-8.9); Platelet Count 140 K/mcL (140-400); Red Blood Count 4.67 M/mcL (4.19-5.50); Red Cell Distribution Width 14.3 % (11.5-14.5); Segmented Neutrophils % 73.1 %; White Blood Count 3.8 K/mcL (4.3-11.1)
[2021-03-31 09:54] LABS: INR 1.1; Prothrombin Time 13.1 Seconds (9.4-12.1)
[2021-03-31 10:00] LABS: Alanine Aminotransferase 34 Units/L (7-52); Albumin 3.5 g/dL (3.5-5.7); Albumin/Globulin Ratio 1.2 (1.1-2.2); Alkaline Phosphatase 47 Units/L (34-104); Aspartate Amino Transferase 41 Units/L (13-39); BUN/Creatinine Ratio 22 (6-26); Bilirubin,Total 0.5 mg/dL (0.3-1.0); Blood Urea Nitrogen 24 mg/dL (6-20); C-Reactive Protein 95 mg/L (Less than 10); Calcium 8.2 mg/dL (8.6-10.3); Carbon Dioxide 24 mEq/L (23-29); Chloride 99 mEq/L (98-107); Globulin 2.9 g/dL (2.4-3.5); Glucose 121 mg/dL (70-105); Lactate Dehydrogenase 652 Units/L (140-271); Osmolality,Calculated 279 (280-300); Potassium 4.1 mEq/L (3.5-5.1); Sodium 132 mEq/L (136-145); Total Protein 6.4 g/dL (6.4-8.9); eGFR For African Americans > 60 (> 60); eGFR For Non-African Americans > 60 (> 60)
[2021-03-31 10:17] LABS: Ferritin 1160 ng/mL (20-250)
[2021-03-31] MEDS: Ipratropium 1 PUFF INHALER IH SCH ×5 (10:26→23:13)
[2021-03-31] MEDS: Furosemide 20 MG/2 ML VIAL IVP SCH (10:53)
[2021-03-31] MEDS: Budesonide/Formoterol 160/4.5 1 PUFF INH IH SCH ×2 (11:30→20:02)
[2021-03-31] MEDS: Remdesivir 100 MG in 0.9 % Sodium Chloride 100 ML IVPB SCH (17:40)
[2021-03-31] MEDS ORDERED: TOCILIZUMAB 810 MG in 0.9 % Sodium Chloride 95.5 ML IVPB ONE (18:00)
[2021-03-31] MEDS ORDERED: Isovue-370 500 ML BOTTLE IVP ONE (18:21)
[2021-03-31] MEDS ORDERED: levoFLOXacin 750 MG TABLET PO SCH (19:00)
[2021-03-31] MEDS: Insulin DETEMIR 100 UNIT/ML X5UNITS SUBQ SCH (20:21)
[2021-03-31] MEDS ORDERED: *HR* Enoxaparin 40 MG/0.4 ML SYRINGE SQ SCH (20:45)
[2021-03-31 21:29] LABS: Adenovirus Not Detected (Not Detect); Coronavirus 229E Not Detected (Not Detect); Coronavirus HKU1 Not Detected (Not Detect); Coronavirus NL63 Not Detected (Not Detect); Coronavirus OC43 Not Detected (Not Detect)
[2021-03-31 21:30] LABS: Bordetella Pertussis Not Detected (Not Detect); Chlamydophila pneumoniae Not Detected (Not Detect); Human Metapneumovirus Not Detected (Not Detect); Human Rhinovirus/Enterovirus Not Detected (Not Detect); Influenza A Subtype 2009 H1 Not Detected (Not Detect); Influenza B Not Detected (Not Detect); Mycoplasma pneumoniae Not Detected (Not Detect); Parainfluenza Virus 1 Not Detected (Not Detect); Parainfluenza Virus 2 Not Detected (Not Detect); Parainfluenza Virus 3 Not Detected (Not Detect); Parainfluenza Virus 4 Not Detected (Not Detect); Respiratory Syncytial Virus Not Detected (Not Detect); SARS-CoV-2 DETECTED (Not Detect)
[2021-03-31] MEDS ORDERED: *HR* Heparin 5,000 UNIT/ML VIAL IVP ONE (21:37)
[2021-03-31] MEDS ORDERED: *HR* Heparin 5,000 UNIT/ML VIAL IVP PRN ×2 (21:37)
[2021-03-31 22:22] LABS: BUN/Creatinine Ratio 28 (6-26); Blood Urea Nitrogen 26 mg/dL (6-20); Calcium 8.1 mg/dL (8.6-10.3); Carbon Dioxide 22 mEq/L (23-29); Chloride 96 mEq/L (98-107); Glucose 237 mg/dL (70-105); Osmolality,Calculated 276 (280-300); Potassium 4.1 mEq/L (3.5-5.1); Sodium 127 mEq/L (136-145); eGFR For African Americans > 60 (> 60); eGFR For Non-African Americans > 60 (> 60)
[2021-03-31 22:23] LABS: Troponin I < 0.03 ng/mL (< 0.04)
[2021-03-31 22:36] LABS: Heparin anti-factor XA UFH 0.06 IU/mL (0.30-0.70); Prothrombin Time 11.1 Seconds (9.4-12.1)
[2021-03-31] MEDS: Heparin 25,000UNIT/250ML 1/2NS 25,000 UNIT/250 ML IV.SOLN IVC SCH (23:15)
[2021-04-01] MEDS ORDERED: *HR* LORazepam 2 MG/ML VIAL IVP ONE ×2 (00:54→05:00)
[2021-04-01] MEDS: Haloperidol Lactate 5 MG/ML VIAL IVP ONE ×2 (02:39→05:16)
[2021-04-01] MEDS: Dexmedetomidine HCl 400 MCG/100 ML MLS IVC SCH (03:10)
[2021-04-01] MEDS: Ipratropium 1 PUFF INHALER IH SCH ×5 (03:16→19:28)
[2021-04-01] MEDS ORDERED: *HR* Succinylcholine 200 MG/10 ML VIAL IVP ONE (03:34)
[2021-04-01] MEDS ORDERED: *HR* Rocuronium Bromide 50 MG/5 ML VIAL IVP ONE (03:34)
[2021-04-01] MEDS ORDERED: *HR* Midazolam HCl 5 MG/5 ML VIAL IVP ONE (03:34)
[2021-04-01] MEDS ORDERED: *HR* Midazolam HCl 2 MG/2 ML VIAL IVP ONE (03:34)
[2021-04-01] MEDS ORDERED: *HR* Etomidate 20 MG/10 ML AMPUL IVP ONE (03:34)
[2021-04-01] MEDS: FentaNYL (PF) 1,000 MCG/100 ML IV.SOLN IVC SCH ×2 (05:00→15:15)
[2021-04-01] MEDS ORDERED: LORazepam 20 MG in D5% in Water (EXCEL) 240 ML IVC SCH (05:30)
[2021-04-01] MEDS ORDERED: Morphine Sulfate 2 MG/ML SYRINGE IVP ONE (05:33)
[2021-04-01 06:39] LABS: ABG Base Excess -4 mEq/L (-2 to 3); ABG HCO3 24 mEq/L (21-27); ABG Oxygen Saturation 95 % (95-98); ABG PCO2 56 mmHg (35-45); ABG PH 7.24 pH Units (7.32-7.45); ABG PO2 90 mmHg (85-104); ABG TCO2 25 mEq/L (20-26); Blood Gas VT 420 cc
[2021-04-01] MEDS: Budesonide/Formoterol 160/4.5 1 PUFF INH IH SCH ×2 (07:41→19:28)
[2021-04-01] MEDS: Dexamethasone Sodium Phos/PF 10 MG/ML VIAL IVP SCH (07:47)
[2021-04-01] MEDS: Furosemide 20 MG/2 ML VIAL IVP SCH (07:47)
[2021-04-01] MEDS: Chlorhexidine Rinse 15 ML MOUTHWASH MM SCH ×2 (07:47→21:14)
[2021-04-01] MEDS: Pantoprazole 40 MG VIAL IVP SCH (07:47)
[2021-04-01] MEDS: Cholecalciferol (D-3) 1,000 UNIT (25MCG) TABLET PO SCH (07:48)
[2021-04-01] MEDS: Artificial Tears SOLN 15 ML BOTTLE BOTH EYES PRN (07:48)
[2021-04-01] MEDS: Multivit/Ca/Min/Fe/FA 1 TAB TABLET PO SCH (07:48)
[2021-04-01] MEDS: Insulin LISPRO 300 UNITS/3 ML VIAL SUBQ SCH ×3 (07:50→16:59)
[2021-04-01 08:45] LABS: Hematocrit 33.6 % (37.5-50.1); Immature Granulocytes % 1.7 % (0-4); Lymphocytes # 0.3 K/mcL (0.6-4.6); Mean Corpuscular HGB Conc 33.9 g/dL (31.6-35.5); Mean Corpuscular Hemoglobin 28.6 pg (28.0-33.3); Mean Corpuscular Volume 84.4 fL (83.0-100.0); Mean Platelet Volume 9.8 fL (9.4-12.4); Monocytes # 0.2 K/mcL (0.0-1.3); Monocytes % 8.7 %; Neutrophils # 1.9 K/mcL (1.6-8.9); Platelet Count 134 K/mcL (140-400); Red Blood Count 3.98 M/mcL (4.19-5.50); Segmented Neutrophils % 77.6 %; White Blood Count 2.4 K/mcL (4.3-11.1)
[2021-04-01 08:53] LABS: Hemoglobin 11.4 g/dL (12.9-16.9)
[2021-04-01 08:54] LABS: Heparin anti-factor XA UFH 0.89 IU/mL (0.30-0.70)
[2021-04-01] MEDS ORDERED: Remdesivir 100 MG in 0.9 % Sodium Chloride 100 ML IVPB SCH (09:00)
[2021-04-01 09:02] LABS: Albumin 3.1 g/dL (3.5-5.7); Albumin/Globulin Ratio 1.4 (1.1-2.2); Bilirubin,Direct 0.1 mg/dL (0.0-0.2); Bilirubin,Indirect 0.4 mg/dL (0.0-1.0); Bilirubin,Total 0.5 mg/dL (0.3-1.0); Globulin 2.2 g/dL (2.4-3.5); Total Protein 5.3 g/dL (6.4-8.9)
[2021-04-01 09:05] LABS: Alanine Aminotransferase 34 Units/L (7-52); Albumin 3.1 g/dL (3.5-5.7); Albumin/Globulin Ratio 1.4 (1.1-2.2); Alkaline Phosphatase 49 Units/L (34-104); Aspartate Amino Transferase 47 Units/L (13-39); BUN/Creatinine Ratio 28 (6-26); Bilirubin,Total 0.5 mg/dL (0.3-1.0); Blood Urea Nitrogen 26 mg/dL (6-20); Calcium 7.6 mg/dL (8.6-10.3); Carbon Dioxide 26 mEq/L (23-29); Chloride 98 mEq/L (98-107); Globulin 2.2 g/dL (2.4-3.5); Glucose 194 mg/dL (70-105); Lactate Dehydrogenase 693 Units/L (140-271); Osmolality,Calculated 278 (280-300); Phosphorous 3.9 mg/dL (2.7-4.5); Potassium 4.4 mEq/L (3.5-5.1); Sodium 129 mEq/L (136-145); Total Protein 5.3 g/dL (6.4-8.9); eGFR For African Americans > 60 (> 60); eGFR For Non-African Americans > 60 (> 60)
[2021-04-01 09:50] LABS: C-Reactive Protein 46 mg/L (Less than 10); Ferritin > 1500 ng/mL (20-250)
[2021-04-01] MEDS ORDERED: 0.9 % Sodium Chloride 1,000 ML ONE ×2 (10:02→10:09)
[2021-04-01 11:08] LABS: ABG Base Excess -2 mEq/L (-2 to 3); ABG HCO3 24 mEq/L (21-27); ABG Oxygen Saturation 98 % (95-98); ABG PCO2 45 mmHg (35-45); ABG PH 7.34 pH Units (7.32-7.45); ABG PO2 118 mmHg (85-104); ABG TCO2 26 mEq/L (20-26); Blood Gas Modality ASSIST CONTROL; Blood Gas VT 420 cc
[2021-04-01] MEDS: Remdesivir 100 MG in 0.9 % Sodium Chloride 100 ML IVPB SCH (17:00)
[2021-04-01] MEDS: Norepinephrine 4 MG/254 ML IV.SOLN IVC SCH (17:00)
[2021-04-01] MEDS: Insulin DETEMIR 100 UNIT/ML X5UNITS SUBQ SCH (21:13)
[2021-04-01] MEDS: Heparin 25,000UNIT/250ML 1/2NS 25,000 UNIT/250 ML IV.SOLN IVC SCH ×2 (21:14→21:15)
[2021-04-02] MEDS: Dexmedetomidine HCl 400 MCG/100 ML MLS IVC SCH ×2 (00:01→10:25)
[2021-04-02] MEDS: Ipratropium 1 PUFF INHALER IH SCH ×7 (00:09→23:44)
[2021-04-02 00:18] LABS: ABG Base Excess 0 mEq/L (-2 to 3); ABG HCO3 25 mEq/L (21-27); ABG Oxygen Saturation 99 % (95-98); ABG PCO2 43 mmHg (35-45); ABG PH 7.37 pH Units (7.32-7.45); ABG PO2 123 mmHg (85-104); ABG TCO2 27 mEq/L (20-26); Blood Gas VT 420 cc
[2021-04-02] MEDS: FentaNYL (PF) 1,000 MCG/100 ML IV.SOLN IVC SCH ×4 (02:47→21:15)
[2021-04-02 04:39] LABS: ABG Base Excess 0 mEq/L (-2 to 3); ABG HCO3 26 mEq/L (21-27); ABG Oxygen Saturation 91 % (95-98); ABG PCO2 43 mmHg (35-45); ABG PH 7.38 pH Units (7.32-7.45); ABG PO2 63 mmHg (85-104); ABG TCO2 27 mEq/L (20-26); Blood Gas VT 420 cc
[2021-04-02 06:17] LABS: Basophils % 0.3 %; Hematocrit 36.4 % (37.5-50.1); Hemoglobin 12.7 g/dL (12.9-16.9); Immature Granulocytes % 2.8 % (0-4); Lymphocytes # 0.4 K/mcL (0.6-4.6); Lymphocytes % 11.6 %; Mean Corpuscular HGB Conc 34.9 g/dL (31.6-35.5); Mean Corpuscular Hemoglobin 29.6 pg (28.0-33.3); Mean Corpuscular Volume 84.8 fL (83.0-100.0); Mean Platelet Volume 9.5 fL (9.4-12.4); Monocytes # 0.3 K/mcL (0.0-1.3); Monocytes % 8.2 %; Neutrophils # 2.5 K/mcL (1.6-8.9); Platelet Count 156 K/mcL (140-400); Red Blood Count 4.29 M/mcL (4.19-5.50); Red Cell Distribution Width 14.3 % (11.5-14.5); Segmented Neutrophils % 77.1 %; White Blood Count 3.2 K/mcL (4.3-11.1)
[2021-04-02 06:38] LABS: Albumin 3.4 g/dL (3.5-5.7); Albumin/Globulin Ratio 1.5 (1.1-2.2); Bilirubin,Direct 0.1 mg/dL (0.0-0.2); Bilirubin,Indirect 0.4 mg/dL (0.0-1.0); Bilirubin,Total 0.5 mg/dL (0.3-1.0); Globulin 2.3 g/dL (2.4-3.5); Total Protein 5.7 g/dL (6.4-8.9)
[2021-04-02 06:43] LABS: Alanine Aminotransferase 35 Units/L (7-52); Albumin 3.4 g/dL (3.5-5.7); Albumin/Globulin Ratio 1.4 (1.1-2.2); Alkaline Phosphatase 53 Units/L (34-104); Aspartate Amino Transferase 38 Units/L (13-39); BUN/Creatinine Ratio 36 (6-26); Bilirubin,Total 0.5 mg/dL (0.3-1.0); Blood Urea Nitrogen 31 mg/dL (6-20); Carbon Dioxide 24 mEq/L (23-29); Chloride 99 mEq/L (98-107); Globulin 2.4 g/dL (2.4-3.5); Glucose 176 mg/dL (70-105); Lactate Dehydrogenase 619 Units/L (140-271); Magnesium 2.3 mg/dL (1.6-2.6); Osmolality,Calculated 283 (280-300); Phosphorous 2.9 mg/dL (2.7-4.5); Potassium 4.1 mEq/L (3.5-5.1); Sodium 131 mEq/L (136-145); Total Protein 5.8 g/dL (6.4-8.9); eGFR For African Americans > 60 (> 60); eGFR For Non-African Americans > 60 (> 60)
[2021-04-02 06:56] LABS: Ferritin 1366 ng/mL (20-250)
[2021-04-02] MEDS: Dexamethasone Sodium Phos/PF 10 MG/ML VIAL IVP SCH (07:44)
[2021-04-02] MEDS: Furosemide 20 MG/2 ML VIAL IVP SCH (07:44)
[2021-04-02] MEDS: Chlorhexidine Rinse 15 ML MOUTHWASH MM SCH ×2 (07:44→20:59)
[2021-04-02] MEDS: Pantoprazole 40 MG VIAL IVP SCH (07:44)
[2021-04-02] MEDS: Budesonide/Formoterol 160/4.5 1 PUFF INH IH SCH ×2 (07:45→19:54)
[2021-04-02] MEDS: Multivit/Ca/Min/Fe/FA 1 TAB TABLET PO SCH (07:45)
[2021-04-02] MEDS: Cholecalciferol (D-3) 1,000 UNIT (25MCG) TABLET PO SCH (07:45)
[2021-04-02] MEDS ORDERED: FentaNYL (PF) 1,000 MCG/100 ML IV.SOLN IVC SCH (07:45)
[2021-04-02] MEDS: Norepinephrine 4 MG/254 ML IV.SOLN IVC SCH (08:33)
[2021-04-02 11:24] LABS: C-Reactive Protein 30 mg/L (Less than 10)
[2021-04-02] MEDS: Cisatracurium 200 MG in 0.9 % Sodium Chloride 180 ML IVC SCH (12:40)
[2021-04-02] MEDS: Insulin LISPRO 300 UNITS/3 ML VIAL SUBQ SCH ×3 (12:42→23:37)
[2021-04-02] MEDS: Midazolam HCl 50 MG/100 ML IV.SOLN IVC SCH (14:50)
[2021-04-02] MEDS: Artificial Tears SOLN 15 ML BOTTLE BOTH EYES PRN (20:59)
[2021-04-02] MEDS: Heparin 25,000UNIT/250ML 1/2NS 25,000 UNIT/250 ML IV.SOLN IVC SCH (21:35)
[2021-04-02] MEDS: Insulin DETEMIR 100 UNIT/ML X5UNITS SUBQ SCH (22:06)
[2021-04-03] MEDS: Cisatracurium 200 MG in 0.9 % Sodium Chloride 180 ML IVC SCH ×2 (01:24→17:37)
[2021-04-03] MEDS: Midazolam HCl 50 MG/100 ML IV.SOLN IVC SCH ×2 (01:33→14:13)
[2021-04-03] MEDS: FentaNYL (PF) 2,500 MCG/50 ML IV.SOLN IVC SCH ×3 (03:15→22:02)
[2021-04-03] MEDS: Ipratropium 1 PUFF INHALER IH SCH ×6 (03:32→20:15)
[2021-04-03 03:54] LABS: Basophils % 0.7 %; Hematocrit 35.1 % (37.5-50.1); Hemoglobin 11.4 g/dL (12.9-16.9); Immature Granulocytes % 6.2 % (0-4); Lymphocytes % 14.4 %; Mean Corpuscular HGB Conc 32.5 g/dL (31.6-35.5); Mean Corpuscular Hemoglobin 28.4 pg (28.0-33.3); Mean Corpuscular Volume 87.3 fL (83.0-100.0); Mean Platelet Volume 9.7 fL (9.4-12.4); Monocytes # 0.3 K/mcL (0.0-1.3); Monocytes % 8.2 %; Neutrophils # 2.2 K/mcL (1.6-8.9); Nucleated Red Blood Cells 0.7 /100 WBC (0); Platelet Count 128 K/mcL (140-400); Red Blood Count 4.02 M/mcL (4.19-5.50); Red Cell Distribution Width 14.5 % (11.5-14.5); Segmented Neutrophils % 70.5 %; White Blood Count 3.1 K/mcL (4.3-11.1)
[2021-04-03 03:56] LABS: Lymphocytes # 0.5 K/mcL (0.6-4.6)
[2021-04-03] MEDS: Artificial Tears SOLN 15 ML BOTTLE BOTH EYES SCH ×6 (04:00→23:46)
[2021-04-03 04:03] LABS: ABG Ionized Calcium 1.05 mmol/L (1.15-1.35)
[2021-04-03 04:13] LABS: Alanine Aminotransferase 29 Units/L (7-52); Albumin 2.7 g/dL (3.5-5.7); Albumin/Globulin Ratio 1.3 (1.1-2.2); Alkaline Phosphatase 46 Units/L (34-104); Aspartate Amino Transferase 28 Units/L (13-39); BUN/Creatinine Ratio 46 (6-26); Bilirubin,Direct 0.1 mg/dL (0.0-0.2); Bilirubin,Indirect 0.3 mg/dL (0.0-1.0); Bilirubin,Total 0.4 mg/dL (0.3-1.0); Blood Urea Nitrogen 33 mg/dL (6-20); C-Reactive Protein 14 mg/L (Less than 10); Calcium 6.4 mg/dL (8.6-10.3); Carbon Dioxide 21 mEq/L (23-29); Chloride 109 mEq/L (98-107); Globulin 2.1 g/dL (2.4-3.5); Glucose 146 mg/dL (70-105); Lactate Dehydrogenase 432 Units/L (140-271); Magnesium 2.1 mg/dL (1.6-2.6); Osmolality,Calculated 296 (280-300); Phosphorous 2.6 mg/dL (2.7-4.5); Potassium 3.6 mEq/L (3.5-5.1); Sodium 138 mEq/L (136-145); Total Protein 4.8 g/dL (6.4-8.9); eGFR For African Americans > 60 (> 60); eGFR For Non-African Americans > 60 (> 60)
[2021-04-03 04:22] LABS: ABG Base Excess 0 mEq/L (-2 to 3); ABG HCO3 27 mEq/L (21-27); ABG Oxygen Saturation 99 % (95-98); ABG PCO2 53 mmHg (35-45); ABG PH 7.32 pH Units (7.32-7.45); ABG PO2 135 mmHg (85-104); ABG TCO2 29 mEq/L (20-26); Blood Gas VT 420 cc
[2021-04-03 04:30] LABS: Ferritin 818 ng/mL (20-250)
[2021-04-03 04:36] LABS: Platelet Estimate Normal (Normal)
[2021-04-03] MEDS: Insulin LISPRO 300 UNITS/3 ML VIAL SUBQ SCH ×3 (06:19→18:32)
[2021-04-03] MEDS: Budesonide/Formoterol 160/4.5 1 PUFF INH IH SCH ×2 (07:17→20:16)
[2021-04-03] MEDS: Heparin 25,000UNIT/250ML 1/2NS 25,000 UNIT/250 ML IV.SOLN IVC SCH ×2 (09:06→23:24)
[2021-04-03] MEDS: Norepinephrine 4 MG/254 ML IV.SOLN IVC SCH (09:06)
[2021-04-03] MEDS: Chlorhexidine Rinse 15 ML MOUTHWASH MM SCH ×2 (09:13→19:29)
[2021-04-03] MEDS: Dexamethasone Sodium Phos/PF 10 MG/ML VIAL IVP SCH (09:13)
[2021-04-03] MEDS: Pantoprazole 40 MG VIAL IVP SCH (09:13)
[2021-04-03] MEDS: Furosemide 20 MG/2 ML VIAL IVP SCH (09:13)
[2021-04-03] MEDS: Multivit/Ca/Min/Fe/FA 1 TAB TABLET PO SCH (09:14)
[2021-04-03] MEDS: Cholecalciferol (D-3) 1,000 UNIT (25MCG) TABLET PO SCH (09:14)
[2021-04-03] MEDS: Dexmedetomidine HCl 400 MCG/100 ML MLS IVC SCH (19:29)
[2021-04-03] MEDS: Insulin DETEMIR 100 UNIT/ML X5UNITS SUBQ SCH (19:32)
[2021-04-04] MEDS: Insulin LISPRO 300 UNITS/3 ML VIAL SUBQ SCH ×5 (00:35→23:56)
[2021-04-04] MEDS: Midazolam HCl 50 MG/100 ML IV.SOLN IVC SCH (03:15)
[2021-04-04] MEDS: Artificial Tears SOLN 15 ML BOTTLE BOTH EYES SCH ×2 (03:15→07:16)
[2021-04-04] MEDS: Ipratropium 1 PUFF INHALER IH SCH ×6 (03:42→20:22)
[2021-04-04 03:56] LABS: Hematocrit 37.8 % (37.5-50.1); Hemoglobin 12.4 g/dL (12.9-16.9); Mean Corpuscular HGB Conc 32.8 g/dL (31.6-35.5); Mean Corpuscular Hemoglobin 29.2 pg (28.0-33.3); Mean Corpuscular Volume 89.2 fL (83.0-100.0); Mean Platelet Volume 9.3 fL (9.4-12.4); Platelet Count 155 K/mcL (140-400); Red Blood Count 4.24 M/mcL (4.19-5.50); Red Cell Distribution Width 14.6 % (11.5-14.5)
[2021-04-04 04:09] LABS: Albumin 3.2 g/dL (3.5-5.7); Albumin/Globulin Ratio 1.5 (1.1-2.2); Bilirubin,Direct 0.2 mg/dL (0.0-0.2); Bilirubin,Indirect 0.3 mg/dL (0.0-1.0); Bilirubin,Total 0.5 mg/dL (0.3-1.0); Globulin 2.1 g/dL (2.4-3.5); Total Protein 5.3 g/dL (6.4-8.9)
[2021-04-04 05:20] LABS: BUN/Creatinine Ratio 43 (6-26); Blood Urea Nitrogen 35 mg/dL (6-20); Calcium 8.1 mg/dL (8.6-10.3); Carbon Dioxide 27 mEq/L (23-29); Chloride 104 mEq/L (98-107); Glucose 197 mg/dL (70-105); Osmolality,Calculated 297 (280-300); Potassium 4.5 mEq/L (3.5-5.1); Sodium 137 mEq/L (136-145); eGFR For African Americans > 60 (> 60); eGFR For Non-African Americans > 60 (> 60)
[2021-04-04 05:23] LABS: ABG Base Excess 2 mEq/L (-2 to 3); ABG HCO3 30 mEq/L (21-27); ABG Oxygen Saturation 100 % (95-98); ABG PCO2 58 mmHg (35-45); ABG PH 7.32 pH Units (7.32-7.45); ABG PO2 204 mmHg (85-104); ABG TCO2 32 mEq/L (20-26); Blood Gas Modality ASSIST CONTROL; Blood Gas VT 420 cc
[2021-04-04] MEDS: Chlorhexidine Rinse 15 ML MOUTHWASH MM SCH ×2 (07:17→19:19)
[2021-04-04] MEDS: Pantoprazole 40 MG VIAL IVP SCH (07:17)
[2021-04-04] MEDS: Multivit/Ca/Min/Fe/FA 1 TAB TABLET PO SCH (07:18)
[2021-04-04] MEDS: Dexamethasone Sodium Phos/PF 10 MG/ML VIAL IVP SCH (07:20)
[2021-04-04] MEDS: Furosemide 20 MG/2 ML VIAL IVP SCH (07:21)
[2021-04-04] MEDS: Budesonide/Formoterol 160/4.5 1 PUFF INH IH SCH ×2 (08:12→20:23)
[2021-04-04] MEDS: Cisatracurium 200 MG in 0.9 % Sodium Chloride 180 ML IVC SCH (09:26)
[2021-04-04] MEDS: FentaNYL (PF) 2,500 MCG/50 ML IV.SOLN IVC SCH ×2 (12:25→23:24)
[2021-04-04] MEDS: Cholecalciferol (D-3) 1,000 UNIT (25MCG) TABLET PO SCH (14:26)
[2021-04-04] MEDS: Nystatin SUSP 5 ML UD.LIQ PO SCH ×3 (14:26→19:19)
[2021-04-04] MEDS: Norepinephrine 4 MG/254 ML IV.SOLN IVC SCH ×2 (18:12→23:23)
[2021-04-04] MEDS: Dexmedetomidine HCl 400 MCG/100 ML MLS IVC SCH (18:13)
[2021-04-04] MEDS: Heparin 25,000UNIT/250ML 1/2NS 25,000 UNIT/250 ML IV.SOLN IVC SCH ×2 (19:19→22:16)
[2021-04-04] MEDS: Insulin DETEMIR 100 UNIT/ML X5UNITS SUBQ SCH (19:27)
[2021-04-04] MEDS: Lacri-Lube 3.5 GM TUBE BOTH EYES SCH (19:28)
[2021-04-05] MEDS: Ipratropium 1 PUFF INHALER IH SCH ×5 (00:10→22:00)
[2021-04-05] MEDS: Cisatracurium 200 MG in 0.9 % Sodium Chloride 180 ML IVC SCH (03:43)
[2021-04-05] MEDS: Midazolam HCl 50 MG/100 ML IV.SOLN IVC SCH ×2 (04:20→23:13)
[2021-04-05] MEDS: Insulin LISPRO 300 UNITS/3 ML VIAL SUBQ SCH ×3 (04:21→17:36)
[2021-04-05 04:39] LABS: Hemoglobin 12.9 g/dL (12.9-16.9); Mean Corpuscular HGB Conc 32.3 g/dL (31.6-35.5); Mean Corpuscular Hemoglobin 28.9 pg (28.0-33.3); Mean Corpuscular Volume 89.7 fL (83.0-100.0); Mean Platelet Volume 9.5 fL (9.4-12.4); Platelet Count 165 K/mcL (140-400); Red Blood Count 4.46 M/mcL (4.19-5.50); Red Cell Distribution Width 14.7 % (11.5-14.5); White Blood Count 7.3 K/mcL (4.3-11.1)
[2021-04-05 04:49] LABS: ABG Base Excess 5 mEq/L (-2 to 3); ABG HCO3 32 mEq/L (21-27); ABG Oxygen Saturation 99 % (95-98); ABG PCO2 58 mmHg (35-45); ABG PH 7.35 pH Units (7.32-7.45); ABG PO2 130 mmHg (85-104); ABG TCO2 34 mEq/L (20-26); Blood Gas Modality ASSIST CONTROL; Blood Gas VT 420 cc
[2021-04-05 04:55] LABS: Alanine Aminotransferase 48 Units/L (7-52); Albumin 3.2 g/dL (3.5-5.7); Albumin/Globulin Ratio 1.5 (1.1-2.2); Alkaline Phosphatase 52 Units/L (34-104); Aspartate Amino Transferase 32 Units/L (13-39); BUN/Creatinine Ratio 60 (6-26); Bilirubin,Direct 0.1 mg/dL (0.0-0.2); Bilirubin,Indirect 0.4 mg/dL (0.0-1.0); Bilirubin,Total 0.5 mg/dL (0.3-1.0); Blood Urea Nitrogen 39 mg/dL (6-20); Calcium 8.4 mg/dL (8.6-10.3); Carbon Dioxide 30 mEq/L (23-29); Chloride 102 mEq/L (98-107); Globulin 2.2 g/dL (2.4-3.5); Glucose 185 mg/dL (70-105); Osmolality,Calculated 300 (280-300); Potassium 4.7 mEq/L (3.5-5.1); Sodium 138 mEq/L (136-145); Total Protein 5.4 g/dL (6.4-8.9); eGFR For African Americans > 60 (> 60); eGFR For Non-African Americans > 60 (> 60)
[2021-04-05] MEDS: Budesonide/Formoterol 160/4.5 1 PUFF INH IH SCH ×2 (08:20→22:00)
[2021-04-05] MEDS: Pantoprazole 40 MG VIAL IVP SCH (08:28)
[2021-04-05] MEDS: Chlorhexidine Rinse 15 ML MOUTHWASH MM SCH ×2 (08:29→21:01)
[2021-04-05] MEDS: Furosemide 20 MG/2 ML VIAL IVP SCH (08:29)
[2021-04-05] MEDS: Nystatin SUSP 5 ML UD.LIQ PO SCH ×4 (08:29→21:03)
[2021-04-05] MEDS: Cholecalciferol (D-3) 1,000 UNIT (25MCG) TABLET PO SCH (08:29)
[2021-04-05] MEDS: Multivit/Ca/Min/Fe/FA 1 TAB TABLET PO SCH (08:30)
[2021-04-05] MEDS: Dexamethasone Sodium Phos/PF 10 MG/ML VIAL IVP SCH (08:31)
[2021-04-05] MEDS: Lacri-Lube 3.5 GM TUBE BOTH EYES SCH ×2 (08:58→21:02)
[2021-04-05] MEDS: FentaNYL (PF) 2,500 MCG/50 ML IV.SOLN IVC SCH (11:55)
[2021-04-05] MEDS: Dexmedetomidine HCl 400 MCG/100 ML MLS IVC SCH (15:09)
[2021-04-05] MEDS: Insulin DETEMIR 100 UNIT/ML X5UNITS SUBQ SCH (21:02)
[2021-04-06] MEDS: Insulin LISPRO 300 UNITS/3 ML VIAL SUBQ SCH ×4 (00:11→18:10)
[2021-04-06] MEDS: Heparin 25,000UNIT/250ML 1/2NS 25,000 UNIT/250 ML IV.SOLN IVC SCH (00:30)
[2021-04-06] MEDS: FentaNYL (PF) 2,500 MCG/50 ML IV.SOLN IVC SCH ×2 (01:52→15:20)
[2021-04-06] MEDS: Ipratropium 1 PUFF INHALER IH SCH ×4 (03:55→21:32)
[2021-04-06 04:14] LABS: Hematocrit 38.3 % (37.5-50.1); Hemoglobin 12.7 g/dL (12.9-16.9); Mean Corpuscular HGB Conc 33.2 g/dL (31.6-35.5); Mean Corpuscular Hemoglobin 29.8 pg (28.0-33.3); Mean Corpuscular Volume 89.9 fL (83.0-100.0); Mean Platelet Volume 9.3 fL (9.4-12.4); Platelet Count 162 K/mcL (140-400); Red Blood Count 4.26 M/mcL (4.19-5.50)
[2021-04-06 04:22] LABS: ABG Base Excess 4 mEq/L (-2 to 3); ABG HCO3 31 mEq/L (21-27); ABG Oxygen Saturation 82 % (95-98); ABG PCO2 55 mmHg (35-45); ABG PH 7.35 pH Units (7.32-7.45); ABG PO2 49 mmHg (85-104); ABG TCO2 32 mEq/L (20-26); Blood Gas Modality ASSIST CONTROL; Blood Gas VT 420 cc
[2021-04-06 04:29] LABS: Alanine Aminotransferase 53 Units/L (7-52); Albumin 3.1 g/dL (3.5-5.7); Albumin/Globulin Ratio 1.5 (1.1-2.2); Alkaline Phosphatase 56 Units/L (34-104); Aspartate Amino Transferase 47 Units/L (13-39); BUN/Creatinine Ratio 72 (6-26); Bilirubin,Total 0.5 mg/dL (0.3-1.0); Blood Urea Nitrogen 44 mg/dL (6-20); Calcium 8.7 mg/dL (8.6-10.3); Carbon Dioxide 34 mEq/L (23-29); Chloride 102 mEq/L (98-107); Globulin 2.1 g/dL (2.4-3.5); Glucose 168 mg/dL (70-105); Osmolality,Calculated 301 (280-300); Potassium 4.9 mEq/L (3.5-5.1); Sodium 138 mEq/L (136-145); Total Protein 5.2 g/dL (6.4-8.9); eGFR For African Americans > 60 (> 60); eGFR For Non-African Americans > 60 (> 60)
[2021-04-06 04:42] LABS: Heparin anti-factor XA UFH 0.6 IU/mL (0.30-0.70)
[2021-04-06] MEDS: Cisatracurium 200 MG in 0.9 % Sodium Chloride 180 ML IVC SCH ×2 (05:13→17:43)
[2021-04-06] MEDS: Budesonide/Formoterol 160/4.5 1 PUFF INH IH SCH ×2 (08:12→21:33)
[2021-04-06] MEDS: Norepinephrine 4 MG/254 ML IV.SOLN IVC SCH (08:20)
[2021-04-06] MEDS: Pantoprazole 40 MG VIAL IVP SCH (08:31)
[2021-04-06] MEDS: Cholecalciferol (D-3) 1,000 UNIT (25MCG) TABLET PO SCH (08:31)
[2021-04-06] MEDS: Multivit/Ca/Min/Fe/FA 1 TAB TABLET PO SCH (08:32)
[2021-04-06] MEDS: Furosemide 20 MG/2 ML VIAL IVP SCH (08:32)
[2021-04-06] MEDS: Nystatin SUSP 5 ML UD.LIQ PO SCH ×4 (08:32→20:36)
[2021-04-06] MEDS: Chlorhexidine Rinse 15 ML MOUTHWASH MM SCH ×2 (08:33→20:36)
[2021-04-06] MEDS: Lacri-Lube 3.5 GM TUBE BOTH EYES SCH ×2 (08:33→20:36)
[2021-04-06] MEDS: Dexamethasone Sodium Phos/PF 10 MG/ML VIAL IVP SCH (08:35)
[2021-04-06] MEDS: Midazolam HCl 50 MG/100 ML IV.SOLN IVC SCH ×2 (08:35→16:55)
[2021-04-06] MEDS: Docusate Oral Soln 100 MG/10 ML UDC GTUBE SCH (20:36)
[2021-04-06] MEDS: Insulin DETEMIR 100 UNIT/ML X5UNITS SUBQ SCH (20:39)
[2021-04-07] MEDS: Insulin LISPRO 300 UNITS/3 ML VIAL SUBQ SCH ×4 (00:27→18:35)
[2021-04-07] MEDS: Ipratropium 1 PUFF INHALER IH SCH ×4 (03:17→21:43)
[2021-04-07 03:21] LABS: Hematocrit 40.9 % (37.5-50.1); Hemoglobin 13.3 g/dL (12.9-16.9); Mean Corpuscular HGB Conc 32.5 g/dL (31.6-35.5); Mean Corpuscular Hemoglobin 29.8 pg (28.0-33.3); Mean Corpuscular Volume 91.7 fL (83.0-100.0); Mean Platelet Volume 9.6 fL (9.4-12.4); Platelet Count 161 K/mcL (140-400); Red Blood Count 4.46 M/mcL (4.19-5.50)
[2021-04-07 03:39] LABS: Alanine Aminotransferase 57 Units/L (7-52); Albumin 3.2 g/dL (3.5-5.7); Albumin/Globulin Ratio 1.5 (1.1-2.2); Alkaline Phosphatase 69 Units/L (34-104); Aspartate Amino Transferase 37 Units/L (13-39); BUN/Creatinine Ratio 68 (6-26); Bilirubin,Total 0.6 mg/dL (0.3-1.0); Blood Urea Nitrogen 41 mg/dL (6-20); Calcium 8.6 mg/dL (8.6-10.3); Carbon Dioxide 34 mEq/L (23-29); Chloride 100 mEq/L (98-107); Globulin 2.2 g/dL (2.4-3.5); Glucose 155 mg/dL (70-105); Osmolality,Calculated 299 (280-300); Potassium 5.1 mEq/L (3.5-5.1); Sodium 138 mEq/L (136-145); Total Protein 5.4 g/dL (6.4-8.9); eGFR For African Americans > 60 (> 60); eGFR For Non-African Americans > 60 (> 60)
[2021-04-07 04:19] LABS: ABG Base Excess 6 mEq/L (-2 to 3); ABG HCO3 34 mEq/L (21-27); ABG Oxygen Saturation 86 % (95-98); ABG PCO2 61 mmHg (35-45); ABG PH 7.35 pH Units (7.32-7.45); ABG PO2 56 mmHg (85-104); ABG TCO2 35 mEq/L (20-26); Blood Gas VT 420 cc
[2021-04-07] MEDS: Midazolam HCl 50 MG/100 ML IV.SOLN IVC SCH ×3 (05:13→20:30)
[2021-04-07] MEDS: FentaNYL (PF) 2,500 MCG/50 ML IV.SOLN IVC SCH ×2 (05:47→11:17)
[2021-04-07] MEDS: Cisatracurium 200 MG in 0.9 % Sodium Chloride 180 ML IVC SCH ×2 (08:11→21:27)
[2021-04-07] MEDS: Docusate Oral Soln 100 MG/10 ML UDC GTUBE SCH ×2 (08:12→20:58)
[2021-04-07] MEDS: Chlorhexidine Rinse 15 ML MOUTHWASH MM SCH ×2 (08:12→20:58)
[2021-04-07] MEDS: Dexamethasone Sodium Phos/PF 10 MG/ML VIAL IVP SCH (08:12)
[2021-04-07] MEDS: Pantoprazole 40 MG VIAL IVP SCH (08:12)
[2021-04-07] MEDS: Nystatin SUSP 5 ML UD.LIQ PO SCH ×4 (08:13→21:16)
[2021-04-07] MEDS: Cholecalciferol (D-3) 1,000 UNIT (25MCG) TABLET PO SCH (08:13)
[2021-04-07] MEDS: Multivit/Ca/Min/Fe/FA 1 TAB TABLET PO SCH (08:13)
[2021-04-07] MEDS: Furosemide 20 MG/2 ML VIAL IVP SCH (08:13)
[2021-04-07] MEDS: Budesonide/Formoterol 160/4.5 1 PUFF INH IH SCH ×2 (08:22→21:44)
[2021-04-07] MEDS: Lacri-Lube 3.5 GM TUBE BOTH EYES SCH ×2 (09:08→21:12)
[2021-04-07] MEDS: Norepinephrine 4 MG/254 ML IV.SOLN IVC SCH (18:37)
[2021-04-07] MEDS: Insulin DETEMIR 100 UNIT/ML X5UNITS SUBQ SCH (21:15)
[2021-04-07] MEDS: Heparin 25,000UNIT/250ML 1/2NS 25,000 UNIT/250 ML IV.SOLN IVC SCH (23:17)
[2021-04-08] MEDS: Insulin LISPRO 300 UNITS/3 ML VIAL SUBQ SCH ×4 (00:57→17:55)
[2021-04-08] MEDS: FentaNYL (PF) 2,500 MCG/50 ML IV.SOLN IVC SCH ×2 (02:46→15:20)
[2021-04-08] MEDS: Ipratropium 1 PUFF INHALER IH SCH ×4 (03:59→22:47)
[2021-04-08 04:40] LABS: ABG Base Excess 4 mEq/L (-2 to 3); ABG HCO3 34 mEq/L (21-27); ABG Oxygen Saturation 94 % (95-98); ABG PCO2 73 mmHg (35-45); ABG PH 7.28 pH Units (7.32-7.45); ABG PO2 83 mmHg (85-104); ABG TCO2 36 mEq/L (20-26); Blood Gas Modality ASSIST CONTROL; Blood Gas VT 420 cc
[2021-04-08] MEDS: Midazolam HCl 50 MG/100 ML IV.SOLN IVC SCH ×3 (05:22→23:10)
[2021-04-08 05:27] LABS: Alanine Aminotransferase 64 Units/L (7-52); Albumin 3.4 g/dL (3.5-5.7); Albumin/Globulin Ratio 1.4 (1.1-2.2); Alkaline Phosphatase 79 Units/L (34-104); Aspartate Amino Transferase 41 Units/L (13-39); BUN/Creatinine Ratio 72 (6-26); Bilirubin,Total 0.6 mg/dL (0.3-1.0); Blood Urea Nitrogen 59 mg/dL (6-20); Carbon Dioxide 31 mEq/L (23-29); Chloride 98 mEq/L (98-107); Globulin 2.4 g/dL (2.4-3.5); Glucose 178 mg/dL (70-105); Osmolality,Calculated 303 (280-300); Sodium 136 mEq/L (136-145); Total Protein 5.8 g/dL (6.4-8.9); eGFR For African Americans > 60 (> 60); eGFR For Non-African Americans > 60 (> 60)
[2021-04-08 05:30] LABS: Hematocrit 43.4 % (37.5-50.1); Hemoglobin 13.9 g/dL (12.9-16.9); Mean Corpuscular Hemoglobin 29.8 pg (28.0-33.3); Mean Corpuscular Volume 93.1 fL (83.0-100.0); Mean Platelet Volume 10.1 fL (9.4-12.4); Platelet Count 167 K/mcL (140-400); Red Blood Count 4.66 M/mcL (4.19-5.50); Red Cell Distribution Width 15.3 % (11.5-14.5); White Blood Count 12.9 K/mcL (4.3-11.1)
[2021-04-08] MEDS: Pantoprazole 40 MG VIAL IVP SCH ×2 (05:43→17:31)
[2021-04-08] MEDS: Budesonide/Formoterol 160/4.5 1 PUFF INH IH SCH ×2 (07:15→22:48)
[2021-04-08] MEDS: Heparin 25,000UNIT/250ML 1/2NS 25,000 UNIT/250 ML IV.SOLN IVC SCH (08:39)
[2021-04-08] MEDS: Chlorhexidine Rinse 15 ML MOUTHWASH MM SCH ×2 (08:40→20:30)
[2021-04-08] MEDS: Dexamethasone Sodium Phos/PF 10 MG/ML VIAL IVP SCH (08:40)
[2021-04-08] MEDS: Docusate Oral Soln 100 MG/10 ML UDC GTUBE SCH ×2 (08:40→20:29)
[2021-04-08] MEDS: Norepinephrine 4 MG/254 ML IV.SOLN IVC SCH (08:40)
[2021-04-08] MEDS: Furosemide 20 MG/2 ML VIAL IVP SCH (08:41)
[2021-04-08] MEDS: Lacri-Lube 3.5 GM TUBE BOTH EYES SCH ×2 (08:41→20:30)
[2021-04-08] MEDS: Multivit/Ca/Min/Fe/FA 1 TAB TABLET PO SCH (08:42)
[2021-04-08] MEDS: Nystatin SUSP 5 ML UD.LIQ PO SCH ×4 (08:42→20:30)
[2021-04-08] MEDS: Cholecalciferol (D-3) 1,000 UNIT (25MCG) TABLET PO SCH (08:42)
[2021-04-08 10:12] LABS: Hematocrit 44.6 % (37.5-50.1); Hemoglobin 14.3 g/dL (12.9-16.9)
[2021-04-08] MEDS: Cisatracurium 200 MG in 0.9 % Sodium Chloride 180 ML IVC SCH (11:47)
[2021-04-08 18:19] LABS: Hematocrit 44.4 % (37.5-50.1); Hemoglobin 14.5 g/dL (12.9-16.9)
[2021-04-08] MEDS: Insulin DETEMIR 100 UNIT/ML X5UNITS SUBQ SCH (20:30)
[2021-04-09] MEDS: Insulin LISPRO 300 UNITS/3 ML VIAL SUBQ SCH ×4 (00:17→19:50)
[2021-04-09] MEDS: Cisatracurium 200 MG in 0.9 % Sodium Chloride 180 ML IVC SCH ×2 (02:07→16:10)
[2021-04-09] MEDS: Ipratropium 1 PUFF INHALER IH SCH ×4 (03:51→19:59)
[2021-04-09] MEDS: FentaNYL (PF) 2,500 MCG/50 ML IV.SOLN IVC SCH ×2 (03:59→13:52)
[2021-04-09 04:32] LABS: Hematocrit 44.3 % (37.5-50.1); Hemoglobin 14.3 g/dL (12.9-16.9); Mean Corpuscular HGB Conc 32.3 g/dL (31.6-35.5); Mean Corpuscular Volume 92.9 fL (83.0-100.0); Mean Platelet Volume 10.5 fL (9.4-12.4); Platelet Count 137 K/mcL (140-400); Red Blood Count 4.77 M/mcL (4.19-5.50); Red Cell Distribution Width 15.5 % (11.5-14.5); White Blood Count 15.7 K/mcL (4.3-11.1)
[2021-04-09 04:34] LABS: ABG Base Excess 3 mEq/L (-2 to 3); ABG HCO3 32 mEq/L (21-27); ABG Oxygen Saturation 94 % (95-98); ABG PCO2 66 mmHg (35-45); ABG PH 7.29 pH Units (7.32-7.45); ABG PO2 79 mmHg (85-104); ABG TCO2 34 mEq/L (20-26); Blood Gas Modality ASSIST CONTROL; Blood Gas VT 420 cc
[2021-04-09 04:37] LABS: Alanine Aminotransferase 54 Units/L (7-52); Albumin 3.4 g/dL (3.5-5.7); Albumin/Globulin Ratio 1.4 (1.1-2.2); Alkaline Phosphatase 87 Units/L (34-104); Aspartate Amino Transferase 36 Units/L (13-39); BUN/Creatinine Ratio 92 (6-26); Bilirubin,Total 0.7 mg/dL (0.3-1.0); Blood Urea Nitrogen 71 mg/dL (6-20); Calcium 9.2 mg/dL (8.6-10.3); Carbon Dioxide 28 mEq/L (23-29); Chloride 99 mEq/L (98-107); Globulin 2.4 g/dL (2.4-3.5); Glucose 204 mg/dL (70-105); Osmolality,Calculated 307 (280-300); Potassium 5.5 mEq/L (3.5-5.1); Sodium 135 mEq/L (136-145); Total Protein 5.8 g/dL (6.4-8.9); eGFR For African Americans > 60 (> 60); eGFR For Non-African Americans > 60 (> 60)
[2021-04-09] MEDS ORDERED: Calcium Gluconate 1gm/50mL 1 GM/50 ML BAG IVPB ONE (05:12)
[2021-04-09] MEDS ORDERED: Insulin Human Regular 10 UNIT in 0.9 % Sodium Chloride 10 ML IV ONE (05:14)
[2021-04-09] MEDS ORDERED: *HR* Dextrose 50 % in Water (Syg) 50 ML SYRINGE IVP ONE (05:15)
[2021-04-09] MEDS: Pantoprazole 40 MG VIAL IVP SCH ×2 (06:47→17:54)
[2021-04-09] MEDS: Budesonide/Formoterol 160/4.5 1 PUFF INH IH SCH ×2 (07:57→19:59)
[2021-04-09] MEDS: Midazolam HCl 50 MG/100 ML IV.SOLN IVC SCH ×2 (08:25→17:18)
[2021-04-09] MEDS: Cholecalciferol (D-3) 1,000 UNIT (25MCG) TABLET PO SCH (08:54)
[2021-04-09] MEDS: Furosemide 20 MG/2 ML VIAL IVP SCH (08:54)
[2021-04-09] MEDS: Multivit/Ca/Min/Fe/FA 1 TAB TABLET PO SCH (08:54)
[2021-04-09] MEDS: Docusate Oral Soln 100 MG/10 ML UDC GTUBE SCH ×2 (08:54→20:44)
[2021-04-09] MEDS: Chlorhexidine Rinse 15 ML MOUTHWASH MM SCH ×2 (08:54→22:28)
[2021-04-09] MEDS: Dexamethasone Sodium Phos/PF 10 MG/ML VIAL IVP SCH (08:55)
[2021-04-09] MEDS: Heparin 25,000UNIT/250ML 1/2NS 25,000 UNIT/250 ML IV.SOLN IVC SCH ×2 (08:55→19:49)
[2021-04-09] MEDS: Lacri-Lube 3.5 GM TUBE BOTH EYES SCH ×2 (08:56→20:45)
[2021-04-09] MEDS: Nystatin SUSP 5 ML UD.LIQ PO SCH ×4 (08:56→20:44)
[2021-04-09] MEDS ORDERED: *HR* Metoprolol 5 MG/5 ML VIAL IVP ONE ×2 (10:08→14:46)
[2021-04-09 11:08] LABS: Bacteria,Urine Few per hpf (None-Few); Bilirubin,Urine Negative (Negative); Blood,Urine Moderate (Negative); Clarity,Urine Turbid (Clear); Color,Urine Light-Yellow (Yellow); Glucose,Urine (UA) Normal (Normal); Hyaline Casts,Urine Few per lpf (None Seen); Ketones,Urine Negative (Negative); Leukocyte Esterase,Urine Negative (Negative); Mucus,Urine Few per lpf (None-Few); Nitrite,Urine Negative (Negative); Protein,Urine Trace mg/dL (Neg-Trace); RBC,Urine 15-30 per hpf (0-3); Specific Gravity,Urine 1.017 (1.010-1.025); Squamous Epithelial Cell,Urine Few per hpf (None-Few); Urobilinogen,Urine Normal (Normal)
[2021-04-09] MEDS: Ibuprofen 600 MG TABLET PO PRN ×2 (13:57→20:44)
[2021-04-09] MEDS ORDERED: Albumin 25% 25gram/100mL 25 GM/100 ML IV.SOLN ONE (16:32)
[2021-04-09] MEDS ORDERED: Albumin Human 5% 12.5 GM/250 ML IV.SOLN ONE (16:34)
[2021-04-09] MEDS ORDERED: Albumin Human 5% 12.5 GM/250 ML IV.SOLN IVPB ONE (16:36)
[2021-04-09] MEDS ORDERED: Albumin 25% 25gram/100mL 25 GM/100 ML IV.SOLN IVC SCH (16:45)
[2021-04-09] MEDS: Phenylephrine 10 MG in 0.9 % Sodium Chloride 250 ML IVC SCH ×3 (17:17→19:36)
[2021-04-09] MEDS: Vasopressin 40 UNIT in D5% in Water 100 ML IVC SCH (19:35)
[2021-04-09] MEDS: Norepinephrine 4 MG/254 ML IV.SOLN IVC SCH (19:49)
[2021-04-09] MEDS: Insulin DETEMIR 100 UNIT/ML X5UNITS SUBQ SCH (21:17)
[2021-04-09] MEDS: Phenylephrine 50 MG in 0.9 % Sodium Chloride 250 ML IVC SCH (22:29)
[2021-04-10] MEDS ORDERED: Acetaminophen IV 500 MG/50 ML BAG IVPB ONE (00:06)
[2021-04-10] MEDS: Insulin LISPRO 300 UNITS/3 ML VIAL SUBQ SCH ×4 (00:17→18:24)
[2021-04-10] MEDS: Midazolam HCl 50 MG/100 ML IV.SOLN IVC SCH ×3 (01:39→19:56)
[2021-04-10] MEDS: FentaNYL (PF) 2,500 MCG/50 ML IV.SOLN IVC SCH ×2 (02:04→17:05)
[2021-04-10 03:39] LABS: Hematocrit 43.4 % (37.5-50.1); Hemoglobin 13.8 g/dL (12.9-16.9); Mean Corpuscular HGB Conc 31.8 g/dL (31.6-35.5); Mean Corpuscular Hemoglobin 29.5 pg (28.0-33.3); Mean Corpuscular Volume 92.7 fL (83.0-100.0); Mean Platelet Volume 10.8 fL (9.4-12.4); Platelet Count 125 K/mcL (140-400); Red Blood Count 4.68 M/mcL (4.19-5.50); Red Cell Distribution Width 15.6 % (11.5-14.5); White Blood Count 19.3 K/mcL (4.3-11.1)
[2021-04-10] MEDS: Ipratropium 1 PUFF INHALER IH SCH ×4 (03:44→20:37)
[2021-04-10 03:53] LABS: ABG Base Excess 1 mEq/L (-2 to 3); ABG HCO3 29 mEq/L (21-27); ABG Oxygen Saturation 96 % (95-98); ABG PCO2 62 mmHg (35-45); ABG PH 7.28 pH Units (7.32-7.45); ABG PO2 92 mmHg (85-104); ABG TCO2 31 mEq/L (20-26); Blood Gas Modality ASSIST CONTROL; Blood Gas VT 450 cc
[2021-04-10 03:59] LABS: Albumin 3.5 g/dL (3.5-5.7); Albumin/Globulin Ratio 1.7 (1.1-2.2); Bilirubin,Total 0.7 mg/dL (0.3-1.0); Calcium 9.3 mg/dL (8.6-10.3); Globulin 2.1 g/dL (2.4-3.5); Potassium 6.4 mEq/L (3.5-5.1); Total Protein 5.6 g/dL (6.4-8.9)
[2021-04-10] MEDS: Cisatracurium 200 MG in 0.9 % Sodium Chloride 180 ML IVC SCH ×2 (05:17→19:28)
[2021-04-10] MEDS: Norepinephrine 4 MG/254 ML IV.SOLN IVC SCH ×2 (05:17→19:21)
[2021-04-10] MEDS: Pantoprazole 40 MG VIAL IVP SCH ×2 (05:18→17:59)
[2021-04-10] MEDS: Budesonide/Formoterol 160/4.5 1 PUFF INH IH SCH ×2 (07:25→20:37)
[2021-04-10] MEDS: Cholecalciferol (D-3) 1,000 UNIT (25MCG) TABLET PO SCH (07:52)
[2021-04-10] MEDS: Multivit/Ca/Min/Fe/FA 1 TAB TABLET PO SCH (07:53)
[2021-04-10] MEDS: Chlorhexidine Rinse 15 ML MOUTHWASH MM SCH ×2 (07:53→19:32)
[2021-04-10] MEDS: Docusate Oral Soln 100 MG/10 ML UDC GTUBE SCH ×2 (07:53→19:32)
[2021-04-10] MEDS: Lacri-Lube 3.5 GM TUBE BOTH EYES SCH ×2 (07:53→19:33)
[2021-04-10] MEDS: Nystatin SUSP 5 ML UD.LIQ PO SCH ×4 (07:53→19:32)
[2021-04-10] MEDS: Furosemide 20 MG/2 ML VIAL IVP SCH (07:53)
[2021-04-10 08:45] LABS: Protein/Creatinine Ratio,Urine 0.7 mg/mg (0.00-0.20)
[2021-04-10] MEDS: Phenylephrine 50 MG in 0.9 % Sodium Chloride 250 ML IVC SCH ×4 (10:22→21:42)
[2021-04-10] MEDS ORDERED: Insulin Human Regular 10 UNIT in 0.9 % Sodium Chloride 10 ML IV ONE (10:44)
[2021-04-10] MEDS ORDERED: *HR* Dextrose 50 % in Water (Syg) 50 ML SYRINGE IVP ONE (10:44)
[2021-04-10] MEDS ORDERED: SODIUM ZIRCONIUM CYCLOSILICATE 5 GM POWD.PACK PO SCH (10:45)
[2021-04-10] MEDS: Piperacillin/Tazobactam 3.375 GM in 0.9 % Sodium Chloride Mini Bag 100 ML IVPB SCH ×2 (11:29→17:58)
[2021-04-10] MEDS: Heparin 25,000UNIT/250ML 1/2NS 25,000 UNIT/250 ML IV.SOLN IVC SCH (12:09)
[2021-04-10] MEDS: Albumin 25% 25gram/100mL 25 GM/100 ML IV.SOLN IVC SCH ×4 (14:34→17:50)
[2021-04-10] MEDS: Vasopressin 40 UNIT in D5% in Water 100 ML IVC SCH (15:30)
[2021-04-10 18:57] LABS: Calcium 9.1 mg/dL (8.6-10.3); Potassium 5.6 mEq/L (3.5-5.1)
[2021-04-10] MEDS: Insulin DETEMIR 100 UNIT/ML X5UNITS SUBQ SCH (19:34)
[2021-04-10] MEDS ORDERED: Amiodarone Premix 150 MG/100 ML BAG IVPB ONE ×2 (21:52)
[2021-04-10] MEDS ORDERED: Amiodarone Premix 360 MG/200 ML BAG IVC ONE ×2 (21:52)
[2021-04-11 00:15] VITALS: TEMP 97.8
[2021-04-11] MEDS: Insulin LISPRO 300 UNITS/3 ML VIAL SUBQ SCH (00:17)
[2021-04-11] MEDS: Lacri-Lube 3.5 GM TUBE BOTH EYES SCH (00:17)
[2021-04-11] MEDS: Phenylephrine 50 MG in 0.9 % Sodium Chloride 250 ML IVC SCH (02:20)
[2021-04-11] MEDS: Piperacillin/Tazobactam 3.375 GM in 0.9 % Sodium Chloride Mini Bag 100 ML IVPB SCH (03:18)
[2021-04-11 03:21] VITALS: BP 55/34; PULSE 116
[2021-04-11 03:39] VITALS: O2SAT 60
== END 2021-04-11 03:35 | disposition expired | DRG 870 ==
LOC: 2NENU → SUATTDRO 06:06 → ICNU 04-01 05:47
PROVIDERS: ADMIT Internal Medicine; ATTEND Internal Medicine